=== PATIENT | male | born 1935 | race Caucasian/White ===

== ENCOUNTER → 2017-01-18 | Outpatient (CLI) | payer MEDICARE ==
--- NOTE | 2017-01-18 10:53 | XR ---
EXAMINATION TYPE: XR lumbar spine 2 or 3V DATE OF EXAM: 01/18/2017 CLINICAL HISTORY: pain TECHNIQUE: Three views of the lumbar spine are submitted. COMPARISON: None. FINDINGS: There is curvature seen convex to the right. The degenerative disc space narrowing and spondylosis is noted throughout. There is evidence of facet joint arthropathy. I do not see evidence for fracture o r bony lesion. IMPRESSION: No acute fracture or dislocation is seen in the lumbar spine. ICD 10 NO FRACTURE, INITIAL EVALUATION
== END | disposition home or self-care (01) ==
LOC: RADXRMAIN 10:18
PROVIDERS: ATTEND Internal Medicine Geriatric Medicine
DX: M48.06 Spinal stenosis, lumbar region (principal)
CPT/HCPCS: 72100

== ENCOUNTER 2018-02-08 13:52 | Emergency (ER) | payer MEDICARE ==
[2018-02-08 14:17] VITALS: BP 133/78; PULSE 73; RESP 18; TEMP 98
[2018-02-08 15:43] LABS: Basophils % (A) 1 %; Eosinophils # (A) 0.1 k/uL (0-0.7); Eosinophils % (A) 1 %; HGB 12.8 gm/dL (13.0-17.5); Lymphocytes # (A) 0.9 k/uL (1.0-4.8); Lymphocytes % (A) 14 %; MCH 30.7 pg (25.0-35.0); MCHC 32.8 g/dL (31.0-37.0); MCV 93.6 fL (80.0-100.0); Mean Platelet Volume 10.5; Monocytes # (A) 0.5 k/uL (0-1.0); Monocytes % (A) 7 %; Neutrophils # (A) 4.8 k/uL (1.3-7.7); Neutrophils % (A) 75 %; Platelet Count 129 k/uL (150-450); RBC 4.17 m/uL (4.30-5.90); RDW 13.1 % (11.5-15.5); WBC 6.4 k/uL (3.8-10.6)
[2018-02-08 16:00] LABS: Albumin 4.2 g/dL (3.5-5.0); Calcium 9.6 mg/dL (8.4-10.2); Potassium 4.8 mmol/L (3.5-5.1); Total Bilirubin 0.5 mg/dL (0.2-1.3); Total Protein 6.9 g/dL (6.3-8.2)
[2018-02-08 16:02] LABS: Creatine Kinase 93 U/L (55-170)
--- NOTE | 2018-02-08 16:11 | ED ---
General Adult HPI - General Chief complaint: GI Bleed Stated complaint: Poss GI Bleed Source: patient Mode of arrival: ambulatory Limitations: no limitations - History of Present Illness Initial comments: Dictation was produced using Step-In dictation software. please excuse any grammatical, word or spelling errors. Chief Complaint: 82-year-old male past medical history of hyperlipidemia, prostate disease, thyroid disorder presents with GI bleed. History of Present Illness: Patient states she's never had symptoms like this in the past. Today he had a bowel movement and passed a large dark bloody stool. He then had what appeared to be dark blood in the toilet. There was also blood in the toilet paper. Patient denies any constitutional symptoms. Denies any history of hemorrhoids. Denies any history of GI bleed. Patient on any anticoagulation. He does take a daily aspirin. Denies any abdominal pain or rectal pain. The ROS documented in this emergency department record has been reviewed and confirmed by me. Those systems with pertinent positive or negative responses have been documented in the HPI. All other systems are other negative and/or noncontributory. - Related Data Home Medications Medication Instructions Recorded Confirmed Aspirin EC [Ecotrin Low Dose] 81 mg PO HS 02/08/18 02/08/18 Ergocalciferol (Vitamin D2) 50,000 unit PO Q14D 02/08/18 02/08/18 [Vitamin D2] Simvastatin [Zocor] 20 mg PO HS 02/08/18 02/08/18 Tamsulosin [Flomax] 0.4 mg PO DAILY 02/08/18 02/08/18 Temazepam 30 mg PO HS 02/08/18 02/08/18 amLODIPine [Norvasc] 5 mg PO DAILY 02/08/18 02/08/18 Previous Rx's Medication Instructions Recorded Famotidine [Pepcid] 40 mg PO BID #20 tab 02/08/18 Allergies Allergy/AdvReac Type Severity Reaction Status Date / Time cyclobenzaprine AdvReac Unknown Verified 02/08/18 15:18 [From Flexeril] Review of Systems ROS Statement: Those systems with pertinent positive or pertinent negative responses have been documented in the HPI. ROS Other: All systems not noted in ROS Statement are negative. Past Medical History Past Medical History: Hyperlipidemia, Prostate Disorder, Thyroid Disorder History of Any Multi-Drug Resistant Organisms: None Reported Past Surgical History: Orthopedic Surgery, Tonsillectomy Additional Past Surgical History / Comment(s): B knee replacements Past Psychological History: No Psychological Hx Reported Smoking Status: Never smoker Past Alcohol Use History: None Reported Past Drug Use History: None Reported General Exam - General Exam Comments Initial Comments: PHYSICAL EXAM: General Impression: Alert and oriented x3, not in acute distress HEENT: Normocephalic atraumatic, extra-ocular movements intact, pupils equal and reactive to light bilaterally, mucous membranes moist. Cardiovascular: Heart regular rate and rhythm, S1&S2 audible, no murmurs, rubs or gallops Chest: Lungs clear to auscultation bilaterally, no rhonchi, no wheeze, no rales Abdomen: Bowel sounds present, abdomen soft, non-tender, non-distended, no organomegaly Musculoskeletal: Pulses present and equal in all extremities, no peripheral edema Motor: Power 5/5 bilaterally, no focal deficits noted Neurological: CN II-XII grossly intact, no focal motor or sensory deficits noted Skin: Intact with no visualized rashes Psych: Normal affect and mood Rectal exam: No findings to suggest fissures. There is a palpable mass in the 6 o'clock position Limitations: no limitations Course Vital Signs 02/08/18 14:12 Temperature 98 F Pulse Rate 73 Respiratory 18 Rate Blood Pressure 133/78 O2 Sat by Pulse 97 Oximetry Medical Decision Making - Medical Decision Making ED course: Old male presents with GI bleed. Clinical presentation suggests that patient's GI bleed is likely secondary to internal hemorrhoids. As upon arrival are within acceptable limits. Laboratory evaluation obtained. Hemoglobin is 12.8. No old labs for comparison. Platelet count is 129. Coag panel is negative. Creatinine 1.3, beyond 40. Glucose 121. Rest of labs unremarkable. X-ray of the abdomen was obtained showing no acute processes. Discussed with patient that no need for admission however he does need to have this addressed. Patient has good follow- up with his primary care physician. Patient is reliable individual with his . The have good follow-up. Patient given outpatient referral to GI doctor. Told to return to the emergency Department with any persistent bleeding worsening pain or any other symptoms. He is told to stop taking his aspirin in the meantime. Patient is understandable and agreeable. He will call his primary care physician's office tomorrow. Clinical presentation is most consistent with internal hemorrhoids. Patient given prescription for Protonix in the meantime. - Lab Data Result diagrams: 02/08/18 15:30 02/08/18 15:30 Lab Results 02/08/18 02/08/18 02/08/18 Range/Units 15:30 15:30 15:30 WBC 6.4 (3.8-10.6) k/uL RBC 4.17 L (4.30-5.90) m/uL Hgb 12.8 L (13.0-17.5) gm/dL Hct 39.0 (39.0-53.0) % MCV 93.6 (80.0-100.0) fL MCH 30.7 (25.0-35.0) pg MCHC 32.8 (31.0-37.0) g/dL RDW 13.1 (11.5-15.5) % Plt Count 129 L (150-450) k/uL Neutrophils % 75 % Lymphocytes % 14 % Monocytes % 7 % Eosinophils % 1 % Basophils % 1 % Neutrophils # 4.8 (1.3-7.7) k/uL Lymphocytes # 0.9 L (1.0-4.8) k/uL Monocytes # 0.5 (0-1.0) k/uL Eosinophils # 0.1 (0-0.7) k/uL Basophils # 0.0 (0-0.2) k/uL PT (9.0-12.0) sec INR (<1.2) APTT (22.0-30.0) sec Sodium 142 (137-145) mmol/L Potassium 4.8 (3.5-5.1) mmol/L Chloride 111 H (98-107) mmol/L Carbon Dioxide 23 (22-30) mmol/L Anion Gap 8 mmol/L BUN 40 H (9-20) mg/dL Creatinine 1.30 H (0.66-1.25) mg/dL Est GFR (CKD-EPI)AfAm 59 (>60 ml/min/1.73 sqM) Est GFR (CKD-EPI)NonAf 51 (>60 ml/min/1.73 sqM) Glucose 121 H (74-99) mg/dL Calcium 9.6 (8.4-10.2) mg/dL Total Bilirubin 0.5 (0.2-1.3) mg/dL AST 53 (17-59) U/L ALT 57 (21-72) U/L Alkaline Phosphatase 76 (38-126) U/L Total Creatine Kinase 93 (55-170) U/L CK-MB (CK-2) 1.4 (0.0-2.4) ng/mL CK-MB (CK-2) Rel Index 1.5 Troponin I <0.012 (0.000-0.034) ng/mL Total Protein 6.9 (6.3-8.2) g/dL Albumin 4.2 (3.5-5.0) g/dL 02/08/18 02/08/18 Range/Units 15:30 15:30 WBC (3.8-10.6) k/uL RBC (4.30-5.90) m/uL Hgb (13.0-17.5) gm/dL Hct (39.0-53.0) % MCV (80.0-100.0) fL MCH (25.0-35.0) pg MCHC (31.0-37.0) g/dL RDW (11.5-15.5) % Plt Count (150-450) k/uL Neutrophils % % Lymphocytes % % Monocytes % % Eosinophils % % Basophils % % Neutrophils # (1.3-7.7) k/uL Lymphocytes # (1.0-4.8) k/uL Monocytes # (0-1.0) k/uL Eosinophils # (0-0.7) k/uL Basophils # (0-0.2) k/uL PT 10.8 (9.0-12.0) sec INR 1.1 (<1.2) APTT 23.8 (22.0-30.0) sec Sodium (137-145) mmol/L Potassium (3.5-5.1) mmol/L Chloride (98-107) mmol/L Carbon Dioxide (22-30) mmol/L Anion Gap mmol/L BUN (9-20) mg/dL Creatinine (0.66-1.25) mg/dL Est GFR (CKD-EPI)AfAm (>60 ml/min/1.73 sqM) Est GFR (CKD-EPI)NonAf (>60 ml/min/1.73 sqM) Glucose (74-99) mg/dL Calcium (8.4-10.2) mg/dL Total Bilirubin (0.2-1.3) mg/dL AST (17-59) U/L ALT (21-72) U/L Alkaline Phosphatase (38-126) U/L Total Creatine Kinase (55-170) U/L CK-MB (CK-2) (0.0-2.4) ng/mL CK-MB (CK-2) Rel Index Troponin I (0.000-0.034) ng/mL Total Protein (6.3-8.2) g/dL Albumin (3.5-5.0) g/dL Disposition Clinical Impression: GI bleed Disposition: HOME SELF-CARE Condition: Fair Instructions: Gastrointestinal Bleeding (ED) Additional Instructions: hold aspirin until further notice Prescriptions: Famotidine [Pepcid] 40 mg PO BID #20 tab Is patient prescribed a controlled substance at d/c from ED?: No Referrals: Juan Fall MD [Primary Care Provider] - 1-2 days Adalberto Saeed MD [STAFF PHYSICIAN] - 1-2 days Time of Disposition: 16:56
[2018-02-08 16:14] LABS: Creatine Kinase MB 1.4 ng/mL (0.0-2.4); Troponin I <0.012 ng/mL (0.000-0.034)
[2018-02-08 16:27] LABS: INR 1.1 (<1.2); Prothrombin Time 10.8 sec (9.0-12.0)
--- NOTE | 2018-02-08 16:51 | XR ---
EXAMINATION TYPE: XR abdomen 1V DATE OF EXAM: 02/08/2018 COMPARISON: NONE HISTORY: Blood in the stool TECHNIQUE: 2 views upright FINDINGS: Bowel gas pattern is normal. There is no sign of intestinal obstruction or pneumoperitoneum . Fecal pattern is normal. There is no 1 cm calcification over the right iliac bone that could be ost eoma of the ileum. There are no pathologic calcifications of the kidneys. There is spurring in the nerissa mbar spine. Lung bases are clear. IMPRESSION: Nonacute abdomen.
== END 2018-02-08 17:41 | disposition home or self-care (01) ==
LOC: EC 13:52
DX: K92.2 Gastrointestinal hemorrhage, unspecified (principal); E78.5 Hyperlipidemia, unspecified; Z79.82 Long term (current) use of aspirin; Z79.899 Other long term (current) drug therapy; Z88.8 Allergy status to other drugs, medicaments and biological substances
CPT/HCPCS: 36415; 74018; 80053; 82550; 82553; 84484; 85025; 85610; 85730; 99285

== ENCOUNTER → 2018-05-09 | Outpatient (CLI) | payer MEDICARE ==
[~2018-05-09] MED LIST: REGADENOSON 0.4 MG/5 ML SYRINGE IV ONE
--- NOTE | 2018-05-09 12:29 | ECHOF ---
Referral Reason:i35.0 - Nonrheumatic Aortic Valve Stenosis MEASUREMENTS -------- HEIGHT: 165.1 cm WEIGHT: 97.5 kg BP: RVIDd: 2.7 cm (< 3.3) IVSd: 1.2 cm (0.6 - 1.1) LVIDd: 4.7 cm (3.9 - 5.3) LVPWd: 1.3 cm (0.6 - 1.1) IVSs: 1.6 cm LVIDs: 4.0 cm LVPWs: 1.6 cm LA Diam: 5.5 cm (2.7 - 3.8) LAESV Index (A-L): 38.33 ml/m Ao Diam: 3.0 cm (2.0 - 3.7) AV Cusp: 1.6 cm (1.5 - 2.6) EPSS: 1.8 cm MV E Jeff: 0.41 m/s MV DecT: 252 ms MV A Jeff: 0.96 m/s MV E/A Ratio: 0.43 AV maxP.08 mmHg AV meanP.46 mmHg AR PHT: 618 ms RAP: 5.00 mmHg RVSP: 41.22 mmHg MV EF SLOPE: 68.06 mm/s (70 - 150) MV EXCURSION: 1.79 cm (> 18.000) FINDINGS -------- Undetermined rhythm. BBB This was a technically adequate study. The left ventricular size is normal. There is mild concentric left ventricular hypertrophy. Overa ll left ventricular systolic function is mild-moderately impaired with, an EF between 40 - 45 %. The right ventricle is normal in size. LA is moderately dilated 34-39 ml/m2 The right atrial size is normal. There is mild aortic valve sclerosis. There is mild aortic regurgitation. There is mild aortic st enosis present. Peak/mean gradient across the Aortic Valve is 21.08mmHg / 9.46mmHg. The mitral valve leaflets are mildly thickened. Mild mitral regurgitation is present. Moderate tricuspid regurgitation present. There is mild to moderate pulmonary hypertension. The r ight ventricular systolic pressure, as measured by Doppler, is 41.22mmHg. Trace/mild (physiologic) pulmonic regurgitation. The aortic root size is normal. There is no pericardial effusion. CONCLUSIONS -------- 1. Undetermined rhythm. 2. BBB 3. The left ventricular size is normal. 4. There is mild concentric left ventricular hypertrophy. 5. Overall left ventricular systolic function is mild-moderately impaired with, an EF between 40 - 45 %. 6. LA is moderately dilated 34-39 ml/m2 7. There is mild aortic valve sclerosis. 8. There is mild aortic regurgitation. 9. There is mild aortic stenosis present. 10. Peak/mean gradient across the Aortic Valve is 21.08mmHg / 9.46mmHg. 11. The mitral valve leaflets are mildly thickened. 12. Mild mitral regurgitation is present. 13. Moderate tricuspid regurgitation present. 14. There is mild to moderate pulmonary hypertension. 15. Trace/mild (physiologic) pulmonic regurgitation. 16. The aortic root size is normal. 17. There is no pericardial effusion. MOLD MECHANIC: Rachana Petersen RDCS
--- NOTE | 2018-05-09 12:57 | EST ---
EXERCISE STRESS AGE: 82 SEX: M HT: 5'6" WT: 215 PROTOCOL: Lexiscan Cardiolite Stress Test HEART RATE REST: 70 BLOOD PRESSURE REST: 162/91 MAXIMUM HEART RATE ACHIEVED: 80 MAXIMUM BLOOD PRESSURE: 162/91. CLINICAL INFORMATION: Baseline rhythm is sinus mechanism, rate of 70, left bundle branch block. Baseline blood pressure 162/91 mmHg. Patient received injection of Lexiscan. Electrocardiographic monitoring revealed no evidence of diagnostic ischemic ST deviation. Cardiolite was injected per protocol. CONCLUSION: 1. Nondiagnostic electrocardiograph stress testing. 2. Nuclear images will be reported separately. MMODL / IJN: [id number] /
--- NOTE | 2018-05-09 15:18 | NM ---
EXAMINATION TYPE: NM stress lexiscan cardiolite DATE OF EXAM: 05/09/2018 COMPARISON: NONE HISTORY: I 44.7, hypertension TECHNIQUE: After the intravenous administration of 10.2 mCi Tc 99m Sestamibi - Cardiolite resting SP ECT images acquired 45 minutes post injection. The patient received 0.4mg Lexiscan, 25.3 mCi Tc 99m Sestamibi - Stress images obtained [address] injection FINDINGS: Review of stress and rest SPECT images demonstrates some mild decreased uptake along the inferior wal l, anteroseptal wall on both stress and rest images. Some decreased uptake is noted on stress images as compared to rest images at the cardiac apex. Gated analysis shows normal wall motion with an estim ated left ventricular ejection fraction of 60 %. 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 Report relayed telephonically to the office of Dr. Fall. A Document Only message has been documented for Juan Fall MD in the [facility] system on 05/09/2018 3:15 PM, Message ID [id number].
== END ==
LOC: RADNMMAIN 07:42
PROVIDERS: ATTEND Internal Medicine Geriatric Medicine
DX: I44.7 Left bundle-branch block, unspecified (principal); I35.0 Nonrheumatic aortic (valve) stenosis
CPT/HCPCS: 93017; 93306; 78452; A9500; J2785

== ENCOUNTER → 2018-06-13 | Outpatient (CLI) | payer MEDICARE ==
[2018-06-13 12:27] LABS: HCT 40.4 % (39.0-53.0); HGB 13.6 gm/dL (13.0-17.5); MCH 31.1 pg (25.0-35.0); MCHC 33.7 g/dL (31.0-37.0); MCV 92.3 fL (80.0-100.0); Mean Platelet Volume 10.8; Platelet Count 135 k/uL (150-450); RBC 4.38 m/uL (4.30-5.90); RDW 13.3 % (11.5-15.5); WBC 6.7 k/uL (3.8-10.6)
[2018-06-13 20:56] LABS: Anion Gap 9.6 mmol/L (4.00-12.00); Carbon Dioxide 24.4 mmol/L (21.6-31.8); Potassium 4.5 mmol/L (3.5-5.5)
== END | disposition home or self-care (01) ==
LOC: LABWHC1 11:16
PROVIDERS: ATTEND Internal Medicine Interventional Cardiology
DX: Z01.812 Encounter for preprocedural laboratory examination (principal); I11.0 Hypertensive heart disease with heart failure; I50.22 Chronic systolic (congestive) heart failure
CPT/HCPCS: 36415; 80051; 82565; 84520; 85027

== ENCOUNTER 2018-06-19 09:52 | Day surgery (SDC) | payer MEDICARE ==
[2018-06-16 09:15] VITALS: BMI 33.1
[~2018-06-19 09:52] MED LIST changes: +ALPRAZolam 0.25 MG TAB PO PRN; +ALPRAZolam 0.5 MG TAB PO PRN; +ASPIRIN 325 MG TAB PO STA; +ATORVASTATIN 80 MG TAB PO STA; +NITROGLYCERIN SL TABS 0.4 MG TAB SUBLINGUAL PRN; -REGADENOSON 0.4 MG/5 ML SYRINGE IV ONE
[2018-06-19] MEDS: SODIUM CHLORIDE 0.9% 1,000 ML in EMPTY BAG 1 BAG IV ONE ×2 (10:25→10:28)
[2018-06-19 10:27] VITALS: PULSE 77; RESP 18; TEMP 97.9
[2018-06-19] MEDS: MIDAZOLAM 2 MG/2 ML VIAL IVP ONE ×2 (13:06→13:09)
[2018-06-19] MEDS ORDERED: LIDOCAINE 1% INJ 10MG/ML (20 ML MDV) SQ ONE (13:11)
[2018-06-19] MEDS: VERAPAMIL SYRINGE (5 MG/10 ML) INTRAARTER ONE ×2 (13:11→13:22)
[2018-06-19] MEDS ORDERED: HEPARIN SODIUM 1,000 UN/ML (10ML VL) IV ONE (13:12)
[2018-06-19] MEDS ORDERED: IOPAMIDOL-370 125ML BTL INJ ONE (13:20)
[2018-06-19] MEDS ORDERED: RX INFO: IV CONTRAST WAS GIVEN 1 EACH MISC MISCELLANE PRN (13:27)
[2018-06-19] MEDS ORDERED: SODIUM CHLORIDE 0.9% 1,000 ML IV SCH (13:30)
--- NOTE | 2018-06-19 13:56 | LTR ---
DATE OF SERVICE: 06/19/2018 RE: Jed Redman Dear Dr. Fall; Mr. Jed Redman underwent a heart catheterization today and that revealed normal coronaries. I want again to thank you for allowing us to participate in his care and please do not hesitate to call if you have any question or concern. Sincerely, MD ALYSON Vasquez / THOMASN: [id number] /
--- NOTE | 2018-06-19 13:56 | CC ---
CARDIAC CATHETERIZATION REPORT DATE OF SERVICE: 06/19/2018 PERFORMING PHYSICIAN: Adarsh Rouse MD, Visitor Use Assistant. PROCEDURE PERFORMED: 1. Selective right and left coronary angiogram. 2. Left heart catheterization. INDICATION: This is a pleasant 82-year-old gentleman with hypertension and dyslipidemia who was experiencing chest discomfort and underwent a myocardial perfusion imaging stress test and that revealed an apical ischemia. The heart catheterization was advised. APPROACH: Right radial artery. COMPLICATION: None. LEVEL OF SEDATION: Moderate with a sedation length of 40 minutes. PROCEDURE DESCRIPTION: After obtaining an informed consent, the patient was brought to the cardiac photo lab manager. The right radial artery was cannulated using micropuncture technique, then I placed a 5- Swiss sheath in the right radial artery and subsequently I gave the patient 2 mg of verapamil IA and 10,000 units of heparin IV. Selective right and left coronary angiogram performed using JR4 and JL3.5 catheters. After that, I did left heart catheterization using 5-Swiss pigtail catheter. The procedure was completed without any complication. CORONARY ANGIOGRAM: 1. The right coronary artery is a medium caliber vessel. It is a nondominant vessel and appears to be angiographically normal. 2. The left main is angiographically normal but the short left main bifurcates into the circumflex and left anterior descending artery. 3. The left circumflex is a large caliber vessel. It is a dominant vessel. The left circumflex system is angiographically normal. It gives rise into first and second OM branches, both are angiographically normal and distally bifurcates into PDA and PLV branches, both are angiographically normal. 4. The LAD: The proximal LAD appeared to be normal. The mid LAD is normal and gives rise into first and second diagonal branches, both appeared to be angiographically normal. It distally appeared to be angiographically normal. HEMODYNAMICS: The left ventricular end-diastolic pressure was 18 mmHg and no gradient was identified across the aortic valve. CONCLUSION: 1. Normal coronary angiogram. 2. Dominant right coronary artery system. 3. Short left main coronary artery. POSTPROCEDURE MANAGEMENT: 1. Medical treatment. 2. Follow up with the patient. MMODL / IJN: [id number] /
[2018-06-19] MEDS ORDERED: amLODIPine 5 MG TAB PO STA (18:06)
[2018-06-19 19:32] VITALS: BP 168/78
== END 2018-06-19 19:20 | disposition home or self-care (01) ==
LOC: CATHCVL 09:52
PROVIDERS: ATTEND Internal Medicine Interventional Cardiology
DX: I42.8 Other cardiomyopathies (principal); R94.39 Abnormal result of other cardiovascular function study; I11.0 Hypertensive heart disease with heart failure; I50.20 Unspecified systolic (congestive) heart failure; E78.5 Hyperlipidemia, unspecified; E78.00 Pure hypercholesterolemia, unspecified; Z79.82 Long term (current) use of aspirin; Z79.899 Other long term (current) drug therapy
CPT/HCPCS: 93458; C1769 ×2; C1894; J2250; J2001; J1644; Q9967

== ENCOUNTER → 2019-05-09 | Outpatient (CLI) | payer MEDICARE ==
--- NOTE | 2019-05-09 15:22 | US ---
EXAMINATION TYPE: US kidneys/renal and bladder DATE OF EXAM: 05/09/2019 COMPARISON: NONE CLINICAL HISTORY: N18.9 Chronic kidney disease. No pain. Abnormal labs. EXAM MEASUREMENTS: Right Kidney: 9.0 x 4.4 x 4.5 cm Left Kidney: 9.8 x 4.6 x 5.2 cm Right Kidney: No hydronephrosis or masses seen Left Kidney: No hydronephrosis or masses seen Bladder: distended, anechoic- inferior portion not well visualized Bilateral Jets seen There is no evidence for hydronephrosis at this point in time. No nephrolithiasis is seen. No ambreen s are identified. The urinary bladder is anechoic. Bilateral ureteral jets are seen. IMPRESSION: Unremarkable renal ultrasound. No hydronephrosis or nephrolithiasis. No sonographic seque la of medical renal disease.
== END | disposition home or self-care (01) ==
LOC: RADUSWWP 14:44
PROVIDERS: ATTEND Internal Medicine Geriatric Medicine
DX: N18.9 Chronic kidney disease, unspecified (principal)
CPT/HCPCS: 76770

== ENCOUNTER → 2020-07-28 | Outpatient (CLI) | payer MEDICARE ==
--- NOTE | 2020-07-28 10:59 | US ---
EXAMINATION TYPE: US carotid duplex BILAT DATE OF EXAM: 07/28/2020 COMPARISON: NONE CLINICAL HISTORY: TIA G45.9. HTN. EXAM MEASUREMENTS: RIGHT: Peak Systolic Velocity (PSV) cm/sec ----- Right CCA: 54.5 ----- Right ICA: 78.6 ----- Right ECA: 54.5 ICA/CCA ratio: 1.4 RIGHT: End Diastole cm/sec ----- Right CCA: 12.8 ----- Right ICA: 17.5 ----- Right ECA: 5.7 LEFT: Peak Systolic Velocity (PSV) cm/sec ----- Left CCA: 58.6 ----- Left ICA: 48.8 ----- Left ECA: 59.6 ICA/CCA ratio: 0.8 LEFT: End Diastole cm/sec ----- Left CCA: 13.9 ----- Left ICA: 14.4 ----- Left ECA: 5.7 VERTEBRALS (direction of flow): Right Vertebral: Antegrade Left Vertebral: Antegrade Rhythm: Normal Plaque seen in bilateral bulbs. No elevated velocities or significant stenosis. Wall thickening vis ualized. IMPRESSION: No significant flow-limiting stenosis. Criteria for Assigning % of Stenosis / Diameter reduction (Estimation based on the indirect measurements of the internal carotid artery velocities (ICA PSV). 1. Normal (no stenosis)=ICA PSV < 125 cm/s: ratio < 2.0: ICA EDV<40 cm/s. 2. Less than 50% stenosis=ICA PSV < 125 cm/s: ratio < 2.0: ICA EDV<40 cm/s. 3. 50 to 69% stenosis=ICA PSV of 125 to 230 cm/s: ration 2.0 ? 4.0: ICA EDV 40-100 cm/s. 4. Greater than 70% stenosis to near occlusion= ICA PSV > 230 cm/s: ratio > 4.0: ICA EDV > 100 cm/s. 5. Near occlusion= ICA PSV velocities may be low or undetectable: variable ratio and ICA EDV. 6. Total occlusion=unable to detect flow.
--- NOTE | 2020-07-28 11:00 | ECHOF ---
Referral Reason:G45.9 TIA MEASUREMENTS -------- HEIGHT: 172.7 cm WEIGHT: 95.7 kg BP: RVIDd: 3.5 cm (< 3.3) IVSd: 1.4 cm (0.6 - 1.1) LVIDd: 4.6 cm (3.9 - 5.3) LVPWd: 1.4 cm (0.6 - 1.1) IVSs: 1.9 cm LVIDs: 3.5 cm LVPWs: 2.0 cm LA Diam: 4.2 cm (2.7 - 3.8) LAESV Index (A-L): 44.49 ml/m Ao Diam: 3.5 cm (2.0 - 3.7) AV Cusp: 1.6 cm (1.5 - 2.6) MV EXCURSION: 16.432 mm (> 18.000) MV EF SLOPE: 37 mm/s (70 - 150) EPSS: 1.7 cm MV E Jeff: 0.78 m/s MV DecT: 294 ms MV A Jeff: 1.35 m/s MV E/A Ratio: 0.58 AV maxP.25 mmHg AV meanP.28 mmHg AR PHT: 652 ms RAP: 5.00 mmHg RVSP: 45.34 mmHg FINDINGS -------- This was a technically adequate study. The left ventricular size is normal. There is moderate concentric left ventricular hypertrophy. O verall left ventricular systolic function is severely impaired with, an EF between 20 - 25 %. The right ventricle is mildly enlarged. LA is severely dilated >40 ml/m2 The right atrium is normal in size. Interatrial and interventricular septum intact. There is mild aortic valve sclerosis. There is mild aortic regurgitation. There is mild aortic st enosis present. Peak/mean gradient across the Aortic Valve is 24.25mmHg / 11.28mmHg. The mitral valve leaflets are mildly thickened. Mild mitral annular calcification present. Mild-t o-moderate mitral regurgitation is present. Moderate tricuspid regurgitation present. There is mild to moderate pulmonary hypertension. The r ight ventricular systolic pressure, as measured by Doppler, is 45.34mmHg. Trace/mild (physiologic) pulmonic regurgitation. 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 Normal inferior vena cava with normal inspiratory collapse consistent with estimated right atrial pre ssure of 5 mmHg. There is no pericardial effusion. CONCLUSIONS -------- 1. The left ventricular size is normal. 2. There is moderate concentric left ventricular hypertrophy. 3. Overall left ventricular systolic function is severely impaired with, an EF between 20 - 25 %. 4. The right ventricle is mildly enlarged. 5. LA is severely dilated >40 ml/m2 6. There is mild aortic valve sclerosis. 7. There is mild aortic regurgitation. 8. There is mild aortic stenosis present. 9. Peak/mean gradient across the Aortic Valve is 24.25mmHg / 11.28mmHg. 10. The mitral valve leaflets are mildly thickened. 11. Mild mitral annular calcification present. 12. [id number] mitral regurgitation is present. 13. Moderate tricuspid regurgitation present. 14. There is mild to moderate pulmonary hypertension. 15. The right ventricular systolic pressure, as measured by Doppler, is 45.34mmHg. 16. Trace/mild (physiologic) pulmonic regurgitation. 17. 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 18. There is no pericardial effusion. NUTRITIONISTS: TANYA Mon
--- NOTE | 2020-07-28 12:10 | MR ---
EXAMINATION TYPE: MR brain wo/w con DATE OF EXAM: 07/28/2020 COMPARISON: None HISTORY: TIA TECHNIQUE: Multiplanar, multisequence images of the brain and brainstem is performed without and with IV contras t, utilizing 9.5 mL intravenous Gadavist . FINDINGS: Diffusion weighted images demonstrate no evidence of a recent infarct or other diffusion ab normality. There is no extra-axial fluid collection. Periventricular confluent and scattered, subco rtical and pericallosal hyperintensities are present, at least 40-50 lesions present The ventricular system and cisternal spaces are normal in size and appearance. The brain volume is age appropriate, there is cortical atrophy. Midline structures demonstrate normal morphology, there is a partially empty sella. The craniocervic al junction appears within normal limits. Post contrast images demonstrate no abnormal enhancement. The dural venous sinuses appear patent. The visualized sinuses are remarkable for mucoperiosteal thic kening in the maxillary sinuses, ethmoid air cells, and the globes are intact. IMPRESSION: Age-related changes of atrophy and chronic small vessel ischemia is favored
== END | disposition home or self-care (01) ==
LOC: RADMRIMAIN 07:58
PROVIDERS: ATTEND Internal Medicine Geriatric Medicine
DX: G45.9 Transient cerebral ischemic attack, unspecified (principal)
CPT/HCPCS: 93225; 93226; 93306; 93880; 70553; A9585

== ENCOUNTER 2021-09-07 16:34 | Observation (INO) | payer MEDICARE ==
[2021-09-07] MEDS ORDERED: SODIUM CHLORIDE 0.9% 1,000 ML IV STA ×2 (17:56→19:44)
[2021-09-07 18:35] LABS: Basophils # (A) 0.1 k/uL (0-0.2); Basophils % (A) 1 %; Eosinophils # (A) 0.2 k/uL (0-0.7); Eosinophils % (A) 3 %; HCT 41.8 % (39.0-53.0); HGB 13.7 gm/dL (13.0-17.5); Lymphocytes # (A) 0.9 k/uL (1.0-4.8); Lymphocytes % (A) 14 %; MCH 30.5 pg (25.0-35.0); MCHC 32.8 g/dL (31.0-37.0); MCV 92.9 fL (80.0-100.0); Mean Platelet Volume 10.2; Monocytes # (A) 0.6 k/uL (0-1.0); Monocytes % (A) 9 %; Neutrophils # (A) 4.8 k/uL (1.3-7.7); Neutrophils % (A) 71 %; Platelet Count 160 k/uL (150-450); WBC 6.7 k/uL (3.8-10.6)
[2021-09-07 18:44] LABS: Potassium 5.2 mmol/L (3.5-5.1)
[2021-09-07 18:45] LABS: Albumin 4.1 g/dL (3.5-5.0); Calcium 9.3 mg/dL (8.4-10.2); Total Bilirubin 0.7 mg/dL (0.2-1.3); Total Protein 7.2 g/dL (6.3-8.2)
--- NOTE | 2021-09-07 19:44 | XR ---
EXAMINATION TYPE: XR chest 1V portable DATE OF EXAM: 09/07/2021 7:24 PM COMPARISON:None TECHNIQUE: XR chest 1V portable Frontal view of the chest. CLINICAL INDICATION:Male, 85 years old with history of dizzy; FINDINGS: Lungs/Pleura: There is no evidence of pleural effusion, focal consolidation, or pneumothorax. Pulmonary vascularity: Unremarkable. Heart/mediastinum: Cardiomediastinal silhouette is prominent in size. Atherosclerotic calcifications are seen in the aorta. Musculoskeletal: No acute osseous pathology. IMPRESSION: No acute cardiopulmonary disease/process.
[2021-09-07] MEDS ORDERED: ACETAMINOPHEN TAB 325 MG TAB PO PRN (19:53)
[2021-09-07] MEDS ORDERED: NALOXONE 0.4 MG/ML 1 ML VIAL IV PRN (19:53)
[2021-09-07] MEDS ORDERED: DOCUSATE 100 MG CAP PO PRN (19:57)
[2021-09-07 20:05] LABS: Appearance,Urine Clear (Clear); Bilirubin,Urine Negative (Negative); Blood,Urine Negative (Negative); Calcium Oxalate Crystals,Urine Occasional /hpf; Color,Urine Yellow; Glucose,Urine (UA) Negative (Negative); Hyaline Casts,Urine 3 /lpf (0-2); Ketones,Urine Negative (Negative); Leukocyte Esterase,Urine Small (Negative); Mucus,Urine Rare /hpf; Nitrite,Urine Negative (Negative); PH, Urine 5.5 (5.0-8.0); Protein,Urine Negative (Negative); RBC,Urine 1 /hpf (0-5); Specific Gravity,Urine 1.019 (1.001-1.035); Urobilinogen,Urine <2.0 mg/dL (<2.0); WBC,Urine 5 /hpf (0-5)
[2021-09-07] MEDS: ASPIRIN 81 MG PO SCH (20:34)
[2021-09-07] MEDS: TAMSULOSIN 0.4 MG CAP.ER.24H PO SCH (20:35)
[2021-09-07] MEDS: ATORVASTATIN 10 MG TAB PO SCH (20:35)
--- NOTE | 2021-09-07 20:42 | ED ---
General Adult HPI - General Chief complaint: Dizziness Stated complaint: Low BP Time Seen by Provider: 09/07/21 17:04 Source: patient, family, RN notes reviewed, old records reviewed Mode of arrival: wheelchair Limitations: physical limitation - History of Present Illness Initial comments: Patient is an 85-year-old male with past medical history remarkable for hypertension, prostate disease, hyperlipidemia, GERD who presents to the department complaining of a low blood pressure and dizziness. This is been ongoing for days to weeks. They have been changing his blood pressure medications at home with help from his doctor. Has been having episodes of what sounds like orthostatic hypotension, she states that when he stands up or sits up from lying down, he becomes lightheaded. He states he almost is passed out, has not for the past. He does fall down onto his knees. Denies any injury to his head or other extremities. States he has been checking his blood pressure at home and is no systolics as low as in the 70s to 80s. He is now only on metoprolol for blood pressure. Denies any numbness, abdominal pain, nausea, vomiting, chest pain, shortness of breath. Is not on blood thinners. Denies hitting his head. His no other acute complaints at this time. Called his PCP office today, and he was instructed to come here for further evaluation. - Related Data Home Medications Medication Instructions Recorded Confirmed Aspirin EC [Ecotrin Low Dose] 81 mg PO HS 02/08/18 09/07/21 Ergocalciferol (Vitamin D2) 50,000 unit PO WE 02/08/18 09/07/21 [Vitamin D2] Simvastatin [Zocor] 20 mg PO 02/08/18 09/07/21 Tamsulosin [Flomax] 0.4 mg PO 02/08/18 09/07/21 Docusate [Colace] 100 mg PO DAILY PRN 09/07/21 09/07/21 Metoprolol Succinate [Toprol XL] 25 mg PO HS 09/07/21 09/07/21 Midodrine HCl [ProAmantine] 2.5 mg PO BID PRN 09/07/21 09/07/21 hydrALAZINE HCL [Apresoline] 25 mg PO DAILY PRN 09/07/21 09/07/21 Allergies Allergy/AdvReac Type Severity Reaction Status Date / Time cyclobenzaprine AdvReac Unknown Verified 09/07/21 18:16 [From Flexeril] Review of Systems ROS Statement: Those systems with pertinent positive or pertinent negative responses have been documented in the HPI. Review of Systems: CONST: Denies fever EYES: Denies blurry vision ENT: Denies nasal congestion C/V: Denies Chest pain RESP: Denies shortness of breath GI: Denies abdominal pain : Denies dysuria SKIN: Denies rash. MSK: Denies joint pain. NEURO: Denies headache ROS Other: All systems not noted in ROS Statement are negative. Past Medical History Past Medical History: GERD/Reflux, Hyperlipidemia, Hypertension, Prostate Disord er History of Any Multi-Drug Resistant Organisms: None Reported Past Surgical History: Joint Replacement, Tonsillectomy Additional Past Surgical History / Comment(s): [facility]raim knee replacements Past Psychological History: No Psychological Hx Reported Smoking Status: Never smoker Past Alcohol Use History: None Reported Past Drug Use History: None Reported - Past Family History Mother Family Medical History: No Reported History Father Family Medical History: Cancer Additional Family Medical History / Comment(s): lung cancer General Exam - General Exam Comments Initial Comments: General: Appears in no acute distress. HEAD: Normal with no signs of head trauma. EYES: PERRLA, EOMI, conjunctiva normal, no discharge. ENT: Hearing grossly intact, normal oropharynx. RESPIRATORY: Clear breath sounds bilaterally. No wheezes, rales, or rhonchi. C/V: Regular rate and rhythm. S1 and S2 auscultated, no edema, peripheral pulses 2+ and intact throughout ABD: Abd is soft, nontender, nondistended EXT: Normal range of motion, no obvious deformity SKIN: No rashes or lesions observed on exposed skin. NEURO: Alert and oriented x 4. Cranial nerves II-XII intact. No focal sensory or strength deficits. NIH is 0. GCS is 15. Limitations: physical limitation Course Vital Signs 09/07/21 09/07/21 16:48 18:17 Temperature 97.5 F L Pulse Rate 72 Pulse Rate [ 71 Talk Show Host ] Respiratory 16 Rate Blood Pressure 131/67 Blood Pressure 174/91 [Left Arm Sitting] Blood Pressure 132/78 [Left Arm Standing] Blood Pressure 186/94 [Left Arm Supine] O2 Sat by Pulse 98 Oximetry Medical Decision Making - Medical Decision Making Based on the patient's presentation and physical exam, does appear as he is having episodes of orthostatic hypotension at home. They have been adjusting his blood pressure medications. He does appear mildly dehydrated as well. Therefore we will obtain a cardiac workup in addition to basic labs, urinalysis. He was in agreement with this plan. Chest x-ray will also be obtained. Orthostatic vital signs will be obtained. EKG shows no signs of acute ischemia. Chest x-ray reveals no acute cardiopulmonary process. Laboratory studies are remarkable for an indeterminate troponin of 0.014 with a mild AK eye with an elevated BUN and creatinine of 30 and 1.43 respectively. Patient is mildly elevated potassium of 5.2. The remainder the labs are unremarkable. Patient's orthostatic vital signs showed significant drop in systolic blood pressure from 186 while supine to 132 while standing. I do believe he is likely experiencing. Patient is elderly, lives with his and I believe it is best for him to be admitted overnight for cardiac monitoring. He will receive IV fluids as well as. I discussed this with the patient as well as family and they were in agreement this plan. I spoke with the admitting physician, Dr. Shah who accepted the patient. Patient was therefore admitted in stable condition. Troponins will be troponin and patient will be continued on IV fluids. We will attempt to hold his evening blood pressure medications at this time. - Lab Data Result diagrams: 09/07/21 18:27 09/07/21 18:27 Lab Results 09/07/21 09/07/21 09/07/21 Range/Units 18:27 18:27 18:27 WBC 6.7 (3.8-10.6) k/uL RBC 4.50 (4.30-5.90) m/uL Hgb 13.7 (13.0-17.5) gm/dL Hct 41.8 (39.0-53.0) % MCV 92.9 (80.0-100.0) fL MCH 30.5 (25.0-35.0) pg MCHC 32.8 (31.0-37.0) g/dL RDW 13.0 (11.5-15.5) % Plt Count 160 (150-450) k/uL MPV 10.2 Neutrophils % 71 % Lymphocytes % 14 % Monocytes % 9 % Eosinophils % 3 % Basophils % 1 % Neutrophils # 4.8 (1.3-7.7) k/uL Lymphocytes # 0.9 L (1.0-4.8) k/uL Monocytes # 0.6 (0-1.0) k/uL Eosinophils # 0.2 (0-0.7) k/uL Basophils # 0.1 (0-0.2) k/uL Sodium 139 (137-145) mmol/L Potassium 5.2 H (3.5-5.1) mmol/L Chloride 107 (98-107) mmol/L Carbon Dioxide 26 (22-30) mmol/L Anion Gap 6 mmol/L BUN 30 H (9-20) mg/dL Creatinine 1.43 H (0.66-1.25) mg/dL Est GFR (CKD-EPI)AfAm 52 (>60 ml/min/1.73 sqM) Est GFR (CKD-EPI)NonAf 45 (>60 ml/min/1.73 sqM) Glucose 113 H (74-99) mg/dL Calcium 9.3 (8.4-10.2) mg/dL Total Bilirubin 0.7 (0.2-1.3) mg/dL AST 35 (17-59) U/L ALT 28 (4-49) U/L Alkaline Phosphatase 80 (38-126) U/L Troponin I (0.000-0.034) ng/mL Total Protein 7.2 (6.3-8.2) g/dL Albumin 4.1 (3.5-5.0) g/dL Urine Color Yellow Urine Appearance Clear (Clear) Urine pH 5.5 (5.0-8.0) Ur Specific [place] 1.019 (1.001-1.035) Urine Protein Negative (Negative) Urine Glucose (UA) Negative (Negative) Urine Ketones Negative (Negative) Urine Blood Negative (Negative) Urine Nitrite Negative (Negative) Urine Bilirubin Negative (Negative) Urine Urobilinogen <2.0 (<2.0) mg/dL Ur Leukocyte Esterase Small H (Negative) Urine RBC 1 (0-5) /hpf Urine WBC 5 (0-5) /hpf Calcium Oxalate Crystal Occasional H (None) /hpf Hyaline Casts 3 H (0-2) /lpf Urine Mucus Rare H (None) /hpf 09/07/21 Range/Units 18:27 WBC (3.8-10.6) k/uL RBC (4.30-5.90) m/uL Hgb (13.0-17.5) gm/dL Hct (39.0-53.0) % MCV (80.0-100.0) fL MCH (25.0-35.0) pg MCHC (31.0-37.0) g/dL RDW (11.5-15.5) % Plt Count (150-450) k/uL MPV Neutrophils % % Lymphocytes % % Monocytes % % Eosinophils % % Basophils % % Neutrophils # (1.3-7.7) k/uL Lymphocytes # (1.0-4.8) k/uL Monocytes # (0-1.0) k/uL Eosinophils # (0-0.7) k/uL Basophils # (0-0.2) k/uL Sodium (137-145) mmol/L Potassium (3.5-5.1) mmol/L Chloride (98-107) mmol/L Carbon Dioxide (22-30) mmol/L Anion Gap mmol/L BUN (9-20) mg/dL Creatinine (0.66-1.25) mg/dL Est GFR (CKD-EPI)AfAm (>60 ml/min/1.73 sqM) Est GFR (CKD-EPI)NonAf (>60 ml/min/1.73 sqM) Glucose (74-99) mg/dL Calcium (8.4-10.2) mg/dL Total Bilirubin (0.2-1.3) mg/dL AST (17-59) U/L ALT (4-49) U/L Alkaline Phosphatase (38-126) U/L Troponin I 0.014 (0.000-0.034) ng/mL Total Protein (6.3-8.2) g/dL Albumin (3.5-5.0) g/dL Urine Color Urine Appearance (Clear) Urine pH (5.0-8.0) Ur Specific [place] (1.001-1.035) Urine Protein (Negative) Urine Glucose (UA) (Negative) Urine Ketones (Negative) Urine Blood (Negative) Urine Nitrite (Negative) Urine Bilirubin (Negative) Urine Urobilinogen (<2.0) mg/dL Ur Leukocyte Esterase (Negative) Urine RBC (0-5) /hpf Urine WBC (0-5) /hpf Calcium Oxalate Crystal (None) /hpf Hyaline Casts (0-2) /lpf Urine Mucus (None) /hpf - EKG Data -: EKG Interpreted by Me EKG Comments: 12-lead Electrocardiogram Interpretation Note EKG was reviewed and interpreted by myself. 12-lead ECG performed at 1703 is interpreted by me as revealing normal sinus rhythm with a left bundle branch block which is chronic at a rate of 75 beats per minute. [place] is normal. [place] interval is 190 ms, QRS durations 160 ms, QTc is 09/13/1968 milliseconds.. There are chronic changes, but no acute changes seen in terms of acute onset ST segment or T-wave changes to suggest ischemia.. R wave progression across the precordium was satisfactory. By my interpretation this EKG is non-diagnostic for acute ischemia. Reveals chronic left bundle branch block. Disposition Clinical Impression: Orthostatic hypotension, JUSTIN (acute kidney injury) Disposition: ADMITTED IP TO THIS [facility] Condition: Stable Referrals: Juan Fall MD [Primary Care Provider] - 1-2 days
[2021-09-08] MEDS ORDERED: METOPROLOL SUCCINATE (ER) 25 MG TAB.ER.24H PO STA (02:08)
[2021-09-08] MEDS ORDERED: MELATONIN 5 MG TABLET PO ONE (02:11)
--- NOTE | 2021-09-08 07:52 | P.CRDCN ---
History of Present Illness Consult date: 09/08/21 History of present illness: History of Present Illness: The patient is an 85-year-old male with a history of hypertension and hyperlipidemia who presented with symptoms of dizziness and presyncope. The symptoms occur when he is standing and 3 days ago he had a presyncopal episode, fell to the ground but did not lose consciousness completely. He is usually active physically, denies any chest discomfort, palpitations or dyspnea. He underwent cardiac catheterization by Dr. Rouse in June 2018 and had no evidence of obstructive CAD. There is a reported echocardiogram from July 2020 with a severely impaired systolic function was mild to moderate mitral regurgitation and moderate tricuspid regurgitation. He cannot recall any history of CHF or CAD. His EKG showed left bundle branch block that was noted in 2018. He has a history of hypertension and hyperlipidemia, is a nondiabetic nonsmoker. He denies any peripheral edema. He has no associated palpitations with the symptoms. His energy is stable. When he checks his blood pressure home during the events his blood pressure is quite low. He was noted to be orthostatic upon admission. His medication at home include hydralazine on a when necessary basis, metoprolol succinate 25 mg daily, Flomax, simvastatin 20 g daily, aspirin, midodrine on a when necessary basis Review of Systems: Respiratory: No history of asthma, bronchitis or recent cough. GI: She had nausea and vomiting today. No history of peptic ulcer disease. No recent GI bleed. : No hematuria or dysuria. Nervous System: No stroke or seizure. Physical Examination: 85-year-old male, alert and oriented no apparent distress, blood pressure this morning 109/82 he was orthostatic earlier and had episodes of blood pressure in the 180, heart rate in the 60 Head: Normocephalic. Eyes: Sclerae nonicteric. Neck: Good carotid upstroke, no bruit, no jugular venous distention. Lungs: Clear to auscultation. Heart: Regular rate and rhythm, S1-S2, no S3, no rub. Systolic murmur heard at the base with a holosystolic murmur at the apex. Abdomen: Soft nontender, positive bowel sounds no organomegaly. Extremities: No edema, intact distal pulses. Labs: Troponin 0.014, 0.013, 0.018. BUN 30, creatinine 1.43, potassium 5.2, hemoglobin 13.7. EKG sinus mechanism was left bundle branch block. Chest x-ray with no acute infiltrate Impression: 1. Presyncopal episodes with significant orthostatic hypotension and baseline hypertension. There is no clear evidence to suggest arrhythmia as the etiology of his presentation. 2. Prior history of cardiomyopathy with no evidence of CHF on examination 3. Probable dehydration with abnormal renal functions not documented in 2018 4. History of hypertension at baseline 5. History of hyperlipidemia 6. Chronic left bundle branch block Plan: 1. Obtain an echocardiogram with Doppler 2. Follow renal functions 3. Add midodrine 5 mg 3 times a day 4. Monitor orthostatic symptoms 5. Continued telemetry 6. Depending on his progress further recommendations will be made. He may benefit from an outpatient event monitor to rule out high-grade AV block in view of his underlying left bundle branch block. Thank you for this consult we will follow with you. Past Medical History Past Medical History: GERD/Reflux, Hyperlipidemia, Hypertension, Prostate Disorder History of Any Multi-Drug Resistant Organisms: None Reported Past Surgical History: Joint Replacement, Tonsillectomy Additional Past Surgical History / Comment(s): [facility]raim knee replacements Past Psychological History: No Psychological Hx Reported Smoking Status: Never smoker Past Alcohol Use History: None Reported Past Drug Use History: None Reported - Past Family History Mother Family Medical History: No Reported History Father Family Medical History: Cancer Additional Family Medical History / Comment(s): lung cancer Medications and Allergies Home Medications Medication Instructions Recorded Confirmed Type Aspirin EC [Ecotrin Low Dose] 81 mg PO HS 02/08/18 09/07/21 History Ergocalciferol (Vitamin D2) 50,000 unit PO WE 02/08/18 09/07/21 History [Vitamin D2] Simvastatin [Zocor] 20 mg PO HS 02/08/18 09/07/21 History Tamsulosin [Flomax] 0.4 mg PO HS 02/08/18 09/07/21 History Docusate [Colace] 100 mg PO DAILY PRN 09/07/21 09/07/21 History Metoprolol Succinate [Toprol XL] 25 mg PO HS 09/07/21 09/07/21 History Midodrine HCl [ProAmantine] 2.5 mg PO BID PRN 09/07/21 09/07/21 History hydrALAZINE HCL [Apresoline] 25 mg PO DAILY PRN 09/07/21 09/07/21 History Allergies Allergy/AdvReac Type Severity Reaction Status Date / Time cyclobenzaprine AdvReac Unknown Verified 09/07/21 18:16 [From Flexeril] Physical Exam Vitals: Vital Signs Temp Pulse Pulse Resp BP BP BP 09/08/21 06:35 109/82 09/08/21 06:00 61 18 194/99 09/08/21 02:00 64 20 211/114 09/08/21 01:00 62 20 202/103 09/07/21 22:12 66 18 184/104 09/07/21 20:42 67 18 191/97 09/07/21 18:17 71 174/91 132/78 09/07/21 16:48 97.5 F L 72 16 131/67 BP Pulse Ox 09/08/21 06:35 99 09/08/21 06:00 99 09/08/21 02:00 99 09/08/21 01:00 99 09/07/21 22:12 99 09/07/21 20:42 98 09/07/21 18:17 186/94 09/07/21 16:48 98 Intake and Output 09/07/21 09/08/21 09/08/21 22:59 06:59 14:59 Other: Weight 86.183 kg Results 09/07/21 18:27 09/07/21 18:27 Cardiac Enzymes 09/07/21 09/07/21 09/07/21 Range/Units 18:27 18:27 21:22 AST 35 (17-59) U/L Troponin I 0.014 0.013 (0.000-0.034) ng/mL 09/08/21 Range/Units 00:16 AST (17-59) U/L Troponin I 0.018 (0.000-0.034) ng/mL CBC 09/07/21 Range/Units 18:27 WBC 6.7 (3.8-10.6) k/uL RBC 4.50 (4.30-5.90) m/uL Hgb 13.7 (13.0-17.5) gm/dL Hct 41.8 (39.0-53.0) % Plt Count 160 (150-450) k/uL Comprehensive Metabolic Panel 09/07/21 Range/Units 18:27 Sodium 139 (137-145) mmol/L Potassium 5.2 H (3.5-5.1) mmol/L Chloride 107 (98-107) mmol/L Carbon Dioxide 26 (22-30) mmol/L BUN 30 H (9-20) mg/dL Creatinine 1.43 H (0.66-1.25) mg/dL Glucose 113 H (74-99) mg/dL Calcium 9.3 (8.4-10.2) mg/dL AST 35 (17-59) U/L ALT 28 (4-49) U/L Alkaline Phosphatase 80 (38-126) U/L Total Protein 7.2 (6.3-8.2) g/dL Albumin 4.1 (3.5-5.0) g/dL Current Medications Generic Name Dose Route Start Last Admin Trade Name Freq PRN Reason Stop Dose Admin Acetaminophen 650 mg 09/07/21 19:53 Acetaminophen Tab 325 Mg Tab PO Q6HR PRN Mild Pain or Fever > 100.5 Aspirin 81 mg 09/07/21 21:00 09/07/21 20:34 Aspirin 81 Mg PO 81 mg HS DELMA Administration Atorvastatin Calcium 10 mg 09/07/21 21:00 09/07/21 20:35 Atorvastatin 10 Mg Tab PO 10 mg HS DELMA Administration Docusate Sodium 100 mg 09/07/21 19:57 Docusate 100 Mg Cap PO DAILY PRN Constipation Midodrine 5 mg 09/08/21 12:30 Midodrine 5 Mg Tab PO AC-TID DELMA Naloxone HCl 0.2 mg 09/07/21 19:53 Naloxone 0.4 Mg/Ml 1 Ml Vial IV Q2M PRN Opioid Reversal Tamsulosin HCl 0.4 mg 09/07/21 21:00 09/07/21 20:35 Tamsulosin 0.4 Mg Cap.Er.24h PO 0.4 mg HS DELMA Administration Intake and Output 09/07/21 09/08/21 09/08/21 22:59 06:59 14:59 Other: Weight 86.183 kg 09/07/21 18:27 09/07/21 18:27
[2021-09-08] MEDS: SODIUM CHLORIDE 0.9% 1,000 ML IV SCH (09:09)
--- NOTE | 2021-09-08 09:20 | US ---
EXAMINATION TYPE: US kidneys/renal and bladder DATE OF EXAM: 09/08/2021 COMPARISON: US 2019 CLINICAL HISTORY: stepan. Exam done portable EXAM MEASUREMENTS: Right Kidney: 10.5 x 4.3 x 4.0 cm Left Kidney: 9.8 x 4.6 x 4.1 cm Right Kidney: No hydronephrosis or masses seen Left Kidney: No hydronephrosis or masses seen Bladder: wnl Bilateral Jets seen: right jet not seen, left jet seen IMPRESSION: No hydronephrosis or nephrolithiasis.
[2021-09-08 10:14] LABS: Basophils # (A) 0.04 X 10*3/uL (0.00-0.10); Basophils % (A) 0.8 %; Eosinophils # (A) 0.18 X 10*3/uL (0.04-0.35); Eosinophils % (A) 3.5 %; HCT 37.9 % (39.6-50.0); HGB 12.3 g/dL (13.0-17.0); Immature Grans, Automated 0.4 %; Lymphocytes # (A) 1.02 X 10*3/uL (0.90-5.00); Lymphocytes % (A) 19.8 %; MCH 29.9 pg (27.0-32.0); MCHC 32.5 g/dL (32.0-37.0); MCV 92.2 fL (80.0-97.0); Mean Platelet Volume 12.9 fL (9.5-12.2); Monocytes # (A) 0.67 X 10*3/uL (0.20-1.00); NRBC Per 100 WBC 0 /100 WBCS (0.0-0.0); Neutrophils # (A) 3.23 X 10*3/uL (1.80-7.70); Neutrophils % (A) 62.5 %; Platelet Count 150 X 10*3/uL (140-440); RBC 4.11 X 10*6/uL (4.40-5.60); RDW 13.2 % (11.5-14.5); WBC 5.16 X 10*3/uL (4.50-10.00)
[2021-09-08 10:23] LABS: African American GFR (CKD) 58.1 (60.0-200.0); Anion Gap 10.4 mmol/L (10.00-18.00); Blood Urea Nitrogen 22.1 mg/dL (9.0-27.0); Calcium 9.1 mg/dL (8.7-10.3); Carbon Dioxide 23.6 mmol/L (20.0-27.5); Non-African American GFR(CKD) 50.1 (60.0-200.0); Potassium 4.7 mmol/L (3.5-5.5)
[2021-09-08] MEDS ORDERED: ZOLPIDEM 5 MG TAB PO PRN (12:17)
--- NOTE | 2021-09-08 12:19 | P.HPIM ---
History of Present Illness H&P Date: 09/08/21 HISTORY OF PRESENT ILLNESS This is an 85-year-old male patient of Dr. Fall and Dr. Nasim arteaga with past medical history of hypertension, hyperlipidemia, benign prostatic hypertrophy. According to family members at the bedside, patient has had dizziness for the last couple of months. He was recently prescribed midodrine 2.5 mg twice daily from the office however he now states that he did not take any of it. 3 days ago he had a near syncopal episode but did not completely lose consciousness. His walked into the room and he was able to talk and eventually was able to get up on his own. When he stands he gets feeling weak. His blood pressure has been low in the mornings for the past 7-8 days usually around 86/57. He recently stopped nature balance supplement 1-2 days ago and thought his blood pressure was better. He is up calling the office about his blood pressure and dizziness and was told to come in the hospital. Patient was found to be afebrile, heart rate 72, blood pressure initially 131/67 but several hours later blood pressure was 202/103. Orthostatic changes were positive. Pulse ox 96-99% on room air. EKG revealed left bundle branch. CBC was unremarkable. Potassium 5.2, BUN 30 creatinine 1.4. Glucose 113. Liver function tests were normal. Troponin negative on 3 draws. Urinalysis negative for infection there was small leukoesterase and occasional calcium oxalate crystals. Chest x-ray showed no acute cardiopulmonary process. Renal ultrasound revealed no hydronephrosis, no nephrolithiasis. Patient has been placed on the observation unit, cardiology consult, echocardiogram was ordered and cardiology added midodrine at 5 mg 3 times daily. REVIEW OF SYSTEMS Constitutional: No fever, no chills, no night sweats. No weight change. No weakness, fatigue or lethargy. No daytime sleepiness. EENT: No headache. No blurred vision or double vision, no loss of vision. No loss of Hearing, no ringing in the ears, reports dizziness. No nasal drainage or congestion. No epistaxis. No sore throat. Lungs: No shortness of breath, cough, no sputum production. No wheezing. Cardiovascular: No chest pain, no lower extremity edema. No palpitations. No paroxysmal nocturnal dyspnea. No orthopnea. Reports lightheadedness or dizziness. Reports near syncopal episodes. Abdominal: No abdominal pain. No nausea, vomiting. No diarrhea. No constipation. No bloody or tarry stools. No loss of appetite. Genitourinary: No dysuria, increased frequency, urgency. No urinary retention. Musculoskeletal: No myalgias. No muscle weakness, no gait dysfunction, no frequent falls. No back pain. No neck pain. Integumentary: No wounds, no lesions. No rash or pruritus. No unusual bruising. No change in hair or nails. Neurologic: No aphasia. No facial droop. No change in mentation. No head injury. No headache. No paralysis. No paresthesia. Psychiatric: No depression. No anxiety. No mood swings. Endocrine: No abnormal blood sugars. No weight change. SOCIAL HISTORY Patient is a lifelong nonsmoker, no alcohol use, no marijuana or illicit drug use. He does not utilize any DME. He is retired from [employer]. He lives at home with his . FAMILY HISTORY Mother at age 90 from old age with history of Alzheimer's. Father at age 45 from lung cancer. Patient has one sister living at age 87 with no major medical problems. He has one brother the past from an accident. He has 4 children with no major medical problems. PHYSICAL EXAMINATION Gen: This is an 85-year-old male. He is sitting up in bed and appears to be comfortable and in no acute distress. Multiple family members at bedside. HEENT: Head is atraumatic, normocephalic. Pupils equal, round. Sclerae is anicteric. NECK: Supple. No JVD. No lymphadenopathy. No thyromegaly. LUNGS: Clear to auscultation. No wheezes or rhonchi. No intercostal retractions. HEART: Regular rate and rhythm. Systolic murmur. ABDOMEN: Soft. Bowel sounds are present. No masses. No tenderness. EXTREMITIES: No pedal edema. No calf tenderness. Dorsalis pedis palpable bilaterally. NEUROLOGICAL: Patient is awake, alert and oriented x3. Cranial nerves 2 through 12 are grossly intact. ASSESSMENT AND PLAN 1. Presyncopal episodes with orthostatic hypotension and baseline hypertension. Cardiology consult appreciated. Continue cardiac monitoring, monitor orthostatic changes, tMidodrine 5 mg 3 times daily added. 2. History of hypertension. 3. History of cardiomyopathy. 4. Chronic kidney disease stage III with baseline creatinine 1.3. Avoid nephrotoxic agents, monitor renal function. IV fluids decreased to 50 mL per hour. 5. Benign prostatic hypertrophy. Continue Flomax 0.4 mg daily. 6. Hyperlipidemia. Continue atorvastatin 10 mg at bedtime. 7. Insomnia. Patient will be started on Ambien 5 mg at bedtime. 8. GI prophylaxis. Protonix. 9. DVT prophylaxis. Lovenox. Patient will be admitted to the hospital for a minimum of 2 night stay. DISCHARGE PLAN Home in the next 24 hours. Impression and plan of care have been directed as dictated by the signing physician. Sharon Palacios nurse practitioner acting as scribe for signing physician. Past Medical History Past Medical History: GERD/Reflux, Hyperlipidemia, Hypertension, Prostate Disorder History of Any Multi-Drug Resistant Organisms: None Reported Past Surgical History: Joint Replacement, Tonsillectomy Additional Past Surgical History / Comment(s): [facility] knee replacements Past Psychological History: No Psychological Hx Reported Smoking Status: Never smoker Past Alcohol Use History: None Reported Past Drug Use History: None Reported - Past Family History Mother Family Medical History: No Reported History Father Family Medical History: Cancer Additional Family Medical History / Comment(s): lung cancer Medications and Allergies Home Medications Medication Instructions Recorded Confirmed Type Aspirin EC [Ecotrin Low Dose] 81 mg PO HS 02/08/18 09/07/21 History Ergocalciferol (Vitamin D2) 50,000 unit PO WE 02/08/18 09/07/21 History [Vitamin D2] Simvastatin [Zocor] 20 mg PO HS 02/08/18 09/07/21 History Tamsulosin [Flomax] 0.4 mg PO HS 02/08/18 09/07/21 History Docusate [Colace] 100 mg PO DAILY PRN 09/07/21 09/07/21 History Metoprolol Succinate [Toprol XL] 25 mg PO HS 09/07/21 09/07/21 History Midodrine HCl [ProAmantine] 2.5 mg PO BID PRN 09/07/21 09/07/21 History hydrALAZINE HCL [Apresoline] 25 mg PO DAILY PRN 09/07/21 09/07/21 History Allergies Allergy/AdvReac Type Severity Reaction Status Date / Time cyclobenzaprine AdvReac Unknown Verified 09/07/21 18:16 [From Flexeril] Physical Exam Vitals: Vital Signs Temp Pulse Pulse Resp BP BP BP 09/08/21 07:00 97.3 F L 70 22 09/08/21 06:35 109/82 09/08/21 06:00 61 18 194/99 09/08/21 02:00 64 20 211/114 09/08/21 01:00 62 20 202/103 09/07/21 22:12 66 18 184/104 09/07/21 20:42 67 18 191/97 09/07/21 18:17 71 174/91 132/78 09/07/21 16:48 97.5 F L 72 16 131/67 BP Pulse Ox 09/08/21 07:00 176/74 96 09/08/21 06:35 99 09/08/21 06:00 99 09/08/21 02:00 99 09/08/21 01:00 99 09/07/21 22:12 99 09/07/21 20:42 98 09/07/21 18:17 186/94 09/07/21 16:48 98 Intake and Output 09/07/21 09/08/21 09/08/21 22:59 06:59 14:59 Other: Weight 86.183 kg Results CBC & Chem 7: 09/08/21 07:13 09/08/21 07:13 Labs: Abnormal Lab Results - Last 24 Hours (Table) 09/07/21 09/07/21 09/07/21 Range/Units 18:27 18:27 18:27 Lymphocytes # 0.9 L (1.0-4.8) k/uL Potassium 5.2 H (3.5-5.1) mmol/L BUN 30 H (9-20) mg/dL Creatinine 1.43 H (0.66-1.25) mg/dL Glucose 113 H (74-99) mg/dL Ur Leukocyte Esterase Small H (Negative) Calcium Oxalate Crystal Occasional H (None) /hpf Hyaline Casts 3 H (0-2) /lpf Urine Mucus Rare H (None) /hpf
[2021-09-08] MEDS: MIDODRINE 5 MG TAB PO SCH ×2 (13:00→18:42)
--- NOTE | 2021-09-08 19:09 | ECHOF ---
Referral Reason:htn' MEASUREMENTS -------- HEIGHT: 170.2 cm WEIGHT: 86.2 kg BP: RVIDd: 3.6 cm (< 3.3) IVSd: 1.3 cm (0.6 - 1.1) LVIDd: 5.7 cm (3.9 - 5.3) LVPWd: 0.9 cm (0.6 - 1.1) IVSs: 1.4 cm LVIDs: 4.1 cm LVPWs: 1.8 cm LA Diam: 4.5 cm (2.7 - 3.8) LAESV Index (A-L): 50.97 ml/m Ao Diam: 3.0 cm (2.0 - 3.7) AV Cusp: 1.6 cm (1.5 - 2.6) LA Diam: 4.4 cm (2.7 - 3.8) MV EXCURSION: 20.130 mm (> 18.000) MV EF SLOPE: 46 mm/s (70 - 150) EPSS: 1.7 cm AV maxP.83 mmHg AV meanP.55 mmHg AR PHT: 535 ms RAP: 10.00 mmHg RVSP: 50.48 mmHg FINDINGS -------- This was a technically adequate study. The left ventricular size is normal. There is severe global hypokinesis of LV . Overall left vent ricular systolic function is severely impaired with, an EF between 25 - 30 %. The right ventricle is mildly enlarged. LA is severely dilated >40 ml/m2 The right atrial size is normal. There is mild aortic valve sclerosis. There is bitm-dx-agyrebha aortic regurgitation. There is mi ld aortic stenosis present. Peak/mean gradient across the Aortic Valve is 16.83mmHg / 8.55mmHg. Mild mitral annular calcification present. Mild mitral regurgitation is present. Moderate tricuspid regurgitation present. There is moderate to severe pulmonary hypertension. The right ventricular systolic pressure, as measured by Doppler, is 50.48mmHg. Trace/mild (physiologic) pulmonic regurgitation. The aortic root size is normal. There is no pericardial effusion. CONCLUSIONS -------- 1. There is severe global hypokinesis of LV . 2. Overall left ventricular systolic function is severely impaired with, an EF between 25 - 30 %. 3. The right ventricle is mildly enlarged. 4. LA is severely dilated >40 ml/m2 5. There is nvmb-fd-hbexrrhj aortic regurgitation. 6. There is mild aortic stenosis present. 7. Mild mitral regurgitation is present. 8. Moderate tricuspid regurgitation present. 9. There is moderate to severe pulmonary hypertension. 10. Trace/mild (physiologic) pulmonic regurgitation. 11. There is no pericardial effusion. FIELD TEST ENGINEER: Rachana Petersen RDCS
[2021-09-08] MEDS: TAMSULOSIN 0.4 MG CAP.ER.24H PO SCH (22:27)
[2021-09-08] MEDS: ASPIRIN 81 MG PO SCH (22:27)
[2021-09-08] MEDS: ATORVASTATIN 10 MG TAB PO SCH (22:27)
[2021-09-09] MEDS: SODIUM CHLORIDE 0.9% 1,000 ML IV SCH (02:45)
[2021-09-09] MEDS ORDERED: hydrALAZINE HCL 25 MG TAB PO PRN (05:54)
[2021-09-09 07:12] LABS: HCT 39.5 % (39.0-53.0); HGB 13.2 gm/dL (13.0-17.5); MCH 31.2 pg (25.0-35.0); MCHC 33.5 g/dL (31.0-37.0); MCV 93.4 fL (80.0-100.0); Mean Platelet Volume 9.9; Platelet Count 157 k/uL (150-450); RBC 4.23 m/uL (4.30-5.90); RDW 13.6 % (11.5-15.5); WBC 5.5 k/uL (3.8-10.6)
[2021-09-09 07:14] LABS: ALT 24 U/L (4-49); AST 30 U/L (17-59); African American GFR (CKD) 59 (>60 ml/min/1.73 sqM); Albumin 3.5 g/dL (3.5-5.0); Albumin/Globulin Ratio 1.3; Alkaline Phosphatase 71 U/L (38-126); Anion Gap 9 mmol/L; Blood Urea Nitrogen 22 mg/dL (9-20); Calcium 8.9 mg/dL (8.4-10.2); Carbon Dioxide 25 mmol/L (22-30); Chloride 105 mmol/L (98-107); Globulin 2.8 g/dL; Glucose 99 mg/dL (74-99); Non-African American GFR(CKD) 51 (>60 ml/min/1.73 sqM); Potassium 4.1 mmol/L (3.5-5.1); Sodium 139 mmol/L (137-145); Total Bilirubin 0.8 mg/dL (0.2-1.3); Total Protein 6.3 g/dL (6.3-8.2)
[2021-09-09] MEDS: MIDODRINE 5 MG TAB PO SCH ×3 (08:36→17:14)
[2021-09-09] MEDS ORDERED: SPIRONOLACTONE 25 MG TAB PO SCH (09:00)
[2021-09-09] MEDS ORDERED: SACUBITRIL/VALSARTAN 24 MG-26 MG TABLET PO SCH (09:00)
[2021-09-09] MEDS: SACUBITRIL/VALSARTAN 24 MG-26 MG TABLET PO SCH ×2 (09:08→20:38)
--- NOTE | 2021-09-09 10:02 | P.PN ---
Subjective Progress Note Date: 09/09/21 HISTORY OF PRESENT ILLNESS This is an 85-year-old male patient of Dr. Fall and Dr. Nasim arteaga with past medical history of hypertension, hyperlipidemia, benign prostatic h ypertrophy. According to family members at the bedside, patient has had dizziness for the last couple of months. He was recently prescribed midodrine 2.5 mg twice daily from the office however he now states that he did not take any of it. 3 days ago he had a near syncopal episode but did not completely lose consciousness. His walked into the room and he was able to talk and eventually was able to get up on his own. When he stands he gets feeling weak. His blood pressure has been low in the mornings for the past 7-8 days usually around 86/57. He recently stopped nature balance supplement 1-2 days ago and thought his blood pressure was better. He is up calling the office about his blood pressure and dizziness and was told to come in the hospital. Patient was found to be afebrile, heart rate 72, blood pressure initially 131/67 but several hours later blood pressure was 202/103. Orthostatic changes were positive. Pulse ox 96-99% on room air. EKG revealed left bundle branch. CBC was unremarkable. Potassium 5.2, BUN 30 creatinine 1.4. Glucose 113. Liver function tests were normal. Troponin negative on 3 draws. Urinalysis negative for infection there was small leukoesterase and occasional calcium oxalate crystals. Chest x-ray showed no acute cardiopulmonary process. Renal ultrasound revealed no hydronephrosis, no nephrolithiasis. Patient has been placed on the observation unit, cardiology consult, echocardiogram was ordered and cardiology added midodrine at 5 mg 3 times daily. 09/09: Patient was started on losartan yesterday and his blood pressure dropped to 87 systolic, losartan was discontinued. By the evening, patient again had hypotension 207/99 and this morning blood pressure 81/45. The following changes have been made: Discontinue as needed hydralazine XL 25 mg at bedtime, midodrine at 5 mg 3 times daily, continue Toprol-XL 25 mg at bedtime, addEntresto half tablet twice daily. No plan for Aldactone. Case discussed with Dr. Angel on. Patient has been instructed to sleep with his head up to avoid distribution clerk hypotension and DIMA hose ordered. Cortisol level and aldosterone levels ordered. IV fluids discontinued. repeat blood work reveals unremarkable CBC. BUN 22 and creatinine 1.28. He has been evaluated by PT and OT with recommenda tions for home with family. Patient's and daughter at bedside and all questions have been answered. REVIEW OF SYSTEMS Constitutional: No fever, no chills, no night sweats. No weight change. No weakness, fatigue or lethargy. No daytime sleepiness. EENT: No headache. No blurred vision or double vision, no loss of vision. No loss of Hearing, no ringing in the ears, reports dizziness. No nasal drainage or congestion. No epistaxis. No sore throat. Lungs: No shortness of breath, cough, no sputum production. No wheezing. Cardiovascular: No chest pain, no lower extremity edema. No palpitations. No paroxysmal nocturnal dyspnea. No orthopnea. Reports lightheadedness or dizziness especially in the morning. Reports near syncopal episodes. Abdominal: No abdominal pain. No nausea, vomiting. No diarrhea. No constipation. No bloody or tarry stools. No loss of appetite. Genitourinary: No dysuria, increased frequency, urgency. No urinary retention. Musculoskeletal: No myalgias. No muscle weakness, no gait dysfunction, no frequent falls. No back pain. No neck pain. Integumentary: No wounds, no lesions. No rash or pruritus. No unusual bruising. No change in hair or nails. Neurologic: No aphasia. No facial droop. No change in mentation. No head injury. No headache. No paralysis. No paresthesia. Psychiatric: No depression. No anxiety. No mood swings. Endocrine: No abnormal blood sugars. No weight change. PHYSICAL EXAMINATION Gen: This is an 85-year-old male. He is sitting up in bed and appears to be comfortable and in no acute distress. Patient's and daughter at bedside. HEENT: Head is atraumatic, normocephalic. Pupils equal, round. Sclerae is anicteric. NECK: Supple. No JVD. No lymphadenopathy. No thyromegaly. LUNGS: Clear to auscultation. No wheezes or rhonchi. No intercostal r etractions. HEART: Regular rate and rhythm. Systolic murmur. ABDOMEN: Soft. Bowel sounds are present. No masses. No tenderness. EXTREMITIES: No pedal edema. No calf tenderness. Dorsalis pedis palpable bilaterally. NEUROLOGICAL: Patient is awake, alert and oriented x3. Cranial nerves 2 through 12 are grossly intact. ASSESSMENT AND PLAN 1. Presyncopal episodes with severe orthostatic hypotension and baseline hypertension. Cardiology consult appreciated. Continue cardiac monitoring, monitor orthostatic changes, Midodrine 5 mg 3 times daily. 2. History of hypertension. 3. History of nonischemic cardiomyopathy. Patient started on Entresto half tablet twice daily, continue metoprolol. 4. Chronic kidney disease stage III with baseline creatinine 1.3. Avoid nephrotoxic agents, monitor renal function. 5. Benign prostatic hypertrophy. Continue Flomax 0.4 mg daily. 6. Hyperlipidemia. Continue atorvastatin 10 mg at bedtime. 7. Insomnia. Continue on Ambien 5 mg at bedtime. 8. GI prophylaxis. Protonix. 9. DVT prophylaxis. Lovenox. DISCHARGE PLAN Home in the next 24 hours. Impression and plan of care have been directed as dictated by the signing physician. Sharon Palacios nurse practitioner acting as scribe for signing physician. Objective - Vital Signs Vital signs: Vital Signs Temp 98.2 F 09/09/21 07:43 Pulse 79 09/09/21 07:58 Resp 18 09/09/21 07:43 BP 161/78 09/09/21 07:58 Pulse Ox 96 09/09/21 07:43 Intake & Output 09/08/21 09/09/21 09/09/21 18:59 06:59 18:59 Intake Total 1000 Balance 1000 Weight 86.183 kg Intake: Intake, IV Titration 1000 Amount Sodium Chloride 0.9% 1, 1000 000 ml @ 100 mls/hr IV . Q10H STA Rx#:[id number] Other: Voiding Method Toilet Toilet # Voids 2 - Labs CBC & Chem 7: 09/09/21 06:16 09/09/21 06:16 Labs: Abnormal Lab Results - Last 24 Hours (Table) 09/08/21 09/08/21 09/09/21 Range/Units 07:13 07:13 06:16 RBC 4.11 L (4.40-5.60) X 10*6/uL Hgb 12.3 L (13.0-17.0) g/dL Hct 37.9 L (39.6-50.0) % MPV 12.9 H (9.5-12.2) fL BUN 22 H (9-20) mg/dL Creatinine 1.28 H (0.66-1.25) mg/dL Est GFR (CKD-EPI)AfAm 58.1 L (60.0-200.0) Est GFR (CKD-EPI)NonAf 50.1 L (60.0-200.0) Glucose 115 H (70-110) mg/dL 09/09/21 Range/Units 06:16 RBC 4.23 L (4.40-5.60) X 10*6/uL Hgb (13.0-17.0) g/dL Hct (39.6-50.0) % MPV (9.5-12.2) fL BUN (9-20) mg/dL Creatinine (0.66-1.25) mg/dL Est GFR (CKD-EPI)AfAm (60.0-200.0) Est GFR (CKD-EPI)NonAf (60.0-200.0) Glucose (70-110) mg/dL
--- NOTE | 2021-09-09 11:00 | P.PN ---
Subjective Progress Note Date: 09/09/21 HISTORY OF PRESENT ILLNESS: The patient is an 85-year-old male with a history of hypertension and hyperlipidemia who presented with symptoms of dizziness and presyncope. The symptoms occur when he is standing and 3 days ago he had a presyncopal episode, fell to the ground but did not lose consciousness completely. He is usually active physically, denies any chest discomfort, palpitations or dyspnea. He underwent cardiac catheterization by Dr. Rouse in June 2018 and had no evidence of obstructive CAD. There is a reported echocardiogram from July 2020 with a severely impaired systolic function was mild to moderate mitral regurgitation and moderate tricuspid regurgitation. He cannot recall any history of CHF or CAD. His EKG showed left bundle branch block that was noted in 2018. He has a history of hypertension and hyperlipidemia, is a nondiabetic nonsmoker. He denies any peripheral edema. He has no associated palpitations with the symptoms. His energy is stable. When he checks his blood pressure home during the events his blood pressure is quite low. He was noted to be orthostatic upon admission. His medication at home include hydralazine on a when necessary basis, metoprolol succinate 25 mg daily, Flomax, simvastatin 20 g daily, aspirin, midodrine on a when necessary basis 09/09/2021 Patient examined this morning at the bedside. Patient denies chest pain or pressure. Denies SOB. Patient denies dizziness or lightheadedness. Patient was hypertensive overnight with a blood pressure of 207/99. Patient's orthostatic blood pressures this morning remained positive. Blood pressure supine 161/78. Blood pressure standing 81/45. PHYSICAL EXAM: VITAL SIGNS: Reviewed. GENERAL: Well-developed in no acute distress. NECK: Supple. No JVD or thyromegaly LUNGS: Respirations even and unlabored. Lungs essentially clear to auscultation bilaterally. HEART: Regular rate and rhythm. S1 and S2 heard. Systolic murmur. EXTREMITIES: Normal range of motion. No clubbing or cyanosis. Peripheral pulses intact. No lower extremity edema ASSESSMENT: 1. Presyncopal episodes with significant orthostatic hypotension and baseline hypertension. There is no clear evidence to suggest arrhythmia as the etiology of his presentation. 2. Prior history of cardiomyopathy with no evidence of CHF on examination 3. Probable dehydration with abnormal renal functions not documented in 2019 4. History of hypertension at baseline 5. History of hyperlipidemia 6. Chronic left bundle branch block PLAN: Cardiac medications changes made per internal medicine this morning Continue to monitor blood pressure Daily orthostatics Recommend DIMA hose to bilateral lower extremities Further recommendations pending patient course Nurse practitioner note has been reviewed by physician. Signing provider agrees with the documented findings, assessment, and plan of care. Objective - Vital Signs Vital signs: Vital Signs Temp 98.2 F 09/09/21 07:43 Pulse 79 09/09/21 07:58 Resp 18 09/09/21 07:43 BP 161/78 09/09/21 07:58 Pulse Ox 96 09/09/21 07:43 Intake & Output 09/08/21 09/09/21 09/09/21 18:59 06:59 18:59 Intake Total 1000 Balance 1000 Weight 86.183 kg Intake: Intake, IV Titration 1000 Amount Sodium Chloride 0.9% 1, 1000 000 ml @ 100 mls/hr IV . Q10H STA Rx#:[id number] Other: Voiding Method Toilet Toilet # Voids 2 - Labs CBC & Chem 7: 09/09/21 06:16 09/09/21 06:16 Labs: Abnormal Lab Results - Last 24 Hours (Table) 09/09/21 09/09/21 Range/Units 06:16 06:16 RBC 4.23 L (4.30-5.90) m/uL BUN 22 H (9-20) mg/dL Creatinine 1.28 H (0.66-1.25) mg/dL
[2021-09-09] MEDS: ASPIRIN 81 MG PO SCH (20:38)
[2021-09-09] MEDS: TAMSULOSIN 0.4 MG CAP.ER.24H PO SCH (20:38)
[2021-09-09] MEDS: ATORVASTATIN 10 MG TAB PO SCH (20:38)
[2021-09-09] MEDS ORDERED: METOPROLOL SUCCINATE (ER) 25 MG TAB.ER.24H PO SCH (21:00)
[2021-09-09] MEDS ORDERED: MELATONIN 3 MG TABLET PO SCH (21:00)
[2021-09-10 07:26] VITALS: BP 174/84; PULSE 65; RESP 17; TEMP 97.9
--- NOTE | 2021-09-10 08:03 | P.DS ---
Providers Date of admission: 09/09/21 08:08 Expected date of discharge: 09/10/21 Attending physician: Juan Fall Consults: 09/09/21 08:06 Consult Physician Routine Consulting Provider: Adelita House Consult Reason/Comments: hypotension/htn Do you want consulting provider notified?: Already Contacted Primary care physician: [facility] Course: HISTORY OF PRESENT ILLNESS This is an 85-year-old male patient of Dr. Fall and Dr. Nasim arteaga with past medical history of hypertension, hyperlipidemia, benign prostatic hypertrophy. According to family members at the bedside, patient has had dizziness for the last couple of months. He was recently prescribed midodrine 2.5 mg twice daily from the office however he now states that he did not take any of it. 3 days ago he had a near syncopal episode but did not completely lose consciousness. His walked into the room and he was able to talk and eventually was able to get up on his own. When he stands he gets feeling weak. His blood pressure has been low in the mornings for the past 7-8 days usually around 86/57. He recently stopped nature balance supplement 1-2 days ago and thought his blood pressure was better. He is up calling the office about his blood pressure and dizziness and was told to come in the hospital. Patient was found to be afebrile, heart rate 72, blood pressure initially 131/67 but several hours later blood pressure was 202/103. Orthostatic changes were positive. Pulse ox 96-99% on room air. EKG revealed left bundle branch. CBC was unremarkable. Potassium 5.2, BUN 30 creatinine 1.4. Glucose 113. Liver function tests were normal. Troponin negative on 3 draws. Urinalysis negative for infection there was small leukoesterase and occasional calcium oxalate crystals. Chest x-ray showed no acute cardiopulmonary process. Renal ultrasound revealed no hydronephrosis, no nephrolithiasis. Patient has been placed on the observation unit, cardiology consult, echocardiogram was ordered and cardiology added midodrine at 5 mg 3 times daily. 09/09: Patient was started on losartan yesterday and his blood pressure dropped to 87 systolic, losartan was discontinued. By the evening, patient again had hypotension 207/99 and this morning blood pressure 81/45. The following changes have been made: Discontinue as needed hydralazine XL 25 mg at bedtime, midodrine at 5 mg 3 times daily, continue Toprol-XL 25 mg at bedtime, addEntresto half tablet twice daily. No plan for Aldactone. Case discussed with Dr. Angel on. Patient has been instructed to sleep with his head up to avoid hadoop admin hypotension and DIMA hose ordered. Cortisol level and aldosterone levels ordered. IV fluids discontinued. repeat blood work reveals unremarkable CBC. BUN 22 and creatinine 1.28. He has been evaluated by PT and OT with recommendations for home with family. Patient's and daughter at bedside and all questions have been answered. 09/10: Patient states that he is feeling well this morning. He denies lightlheadedness or dizziness, he states he has been up to the bathroom withou issue. Patient continues to have significant orthostatic changes. BP changes from 180/89 - 109/65. Patient maintained on Entresto, midodrine and metoprolol. Multiple family members are here, condition and prognosis have been reviewed with the patient and family and all questions have been answered. All questions have been ansered. Plan for early and frequent follow up after discharge. Patient will be discharged home today in stable condition. DISCHARGE DIAGNOSES 1. Presyncopal episodes with severe orthostatic hypotension and baseline hypertension. 2. History of hypertension. 3. History of nonischemic cardiomyopathy. 4. Chronic kidney disease stage III with baseline creatinine 1.3. 5. Benign prostatic hypertrophy. 6. Hyperlipidemia. 7. Insomnia. DISCHARGE PLAN Home Greater than 35 minutes was utilized and coordinating patient's discharge. Impression and plan of care have been directed as dictated by the signing physician. Sharon Palacios nurse practitioner acting as scribe for signing physician. Patient Condition at Discharge: Good Plan - Discharge Summary Discharge Rx Participant: No New Discharge Prescriptions: New Sacubitril/Valsartan [Entresto 24 mg-26 mg Tablet] 0.5 each PO BID #30 tablet Midodrine [ProAmatine] 5 mg PO AC-TID #90 tab Continue Aspirin EC [Ecotrin Low Dose] 81 mg PO HS Tamsulosin [Flomax] 0.4 mg PO HS Simvastatin [Zocor] 20 mg PO HS Ergocalciferol (Vitamin D2) [Vitamin D2] 50,000 unit PO WE Docusate [Colace] 100 mg PO DAILY PRN PRN Reason: Constipation Metoprolol Succinate [Toprol XL] 25 mg PO HS Discontinued Midodrine HCl [ProAmantine] 2.5 mg PO BID PRN PRN Reason: LOW BP hydrALAZINE HCL [Apresoline] 25 mg PO DAILY PRN PRN Reason: BP >160 Discharge Medication List Aspirin EC [Ecotrin Low Dose] 81 mg PO HS 02/08/18 [History] Ergocalciferol (Vitamin D2) [Vitamin D2] 50,000 unit PO WE 02/08/18 [History] Simvastatin [Zocor] 20 mg PO HS 02/08/18 [History] Tamsulosin [Flomax] 0.4 mg PO HS 02/08/18 [History] Docusate [Colace] 100 mg PO DAILY PRN 09/07/21 [History] Metoprolol Succinate [Toprol XL] 25 mg PO HS 09/07/21 [History] Midodrine [ProAmatine] 5 mg PO AC-TID #90 tab 09/10/21 [Rx] Sacubitril/Valsartan [Entresto 24 mg-26 mg Tablet] 0.5 each PO BID #30 tablet 09/10/21 [Rx] Follow up Appointment(s)/Referral(s): Juan Fall MD [Primary Care Provider] - 1 Week Adarsh Rouse MD [STAFF PHYSICIAN] - 1 Week [facility] [NON-STAFF] - As Needed (Supplier of four wheeled walker) Discharge Disposition: HOME SELF-CARE
[2021-09-10] MEDS: SACUBITRIL/VALSARTAN 24 MG-26 MG TABLET PO SCH (08:39)
[2021-09-10] MEDS: MIDODRINE 5 MG TAB PO SCH (08:42)
[2021-09-10] MEDS ORDERED: ENOXAPARIN 40 MG/0.4 ML SYRINGE SQ SCH (09:00)
--- NOTE | 2021-09-10 18:59 | P.PN ---
Subjective Progress Note Date: 09/10/21 PROGRESS NOTE The patient is feeling better today, has no further symptoms of dizziness. He has been ambulating without difficulty. He denies any chest pain or palpitations. He continues to be in sinus mechanism. PHYSICAL EXAMINATION: Blood pressure 137/79 sitting heart rate 98 LUNGS: Clear to auscultation HEART: Regular rate and rhythm, S1, S2. No S3. systolic ejection murmur ABDOMEN: Soft, nontender, no organomegaly EXTREMETIES: No edema LAB: BUN 22, creatinine 1.28 IMPRESSION: 1. Severe orthostatic hypotension 2. Severe cardiomyopathy, noted in the past 3. Supine hypertension 4. Chronic kidney disease PLAN: The patient will continue on his present medical therapy, he'll be discharged h ome today and follow-up with Dr. Rouse as an outpatient. Objective - Vital Signs Vital signs: Vital Signs Temp 97.9 F 09/10/21 07:00 Pulse 65 09/10/21 07:00 Resp 17 09/10/21 07:00 BP 174/84 09/10/21 07:00 Pulse Ox 97 09/10/21 07:00 Intake & Output 09/09/21 09/10/21 09/10/21 18:59 06:59 18:59 Intake Total 118 Balance 118 Intake: Oral 118 Other: Voiding Method Toilet Toilet # Voids 2 4 - Labs CBC & Chem 7: 09/09/21 06:16 09/09/21 06:16
== END 2021-09-10 09:48 | disposition home or self-care (01) ==
LOC: EC 16:34 → 6NMEDSUR 19:53 → OBSVTOIN 09-09 08:08 → INTOOBSV 09-09 08:08 → UNDODISIN 09-10 09:48
PROVIDERS: ADMIT Internal Medicine Geriatric Medicine; ATTEND Internal Medicine Geriatric Medicine
DX: I95.1 Orthostatic hypotension (principal); I12.9 Hypertensive chronic kidney disease with stage 1 through stage 4 chronic kidney disease, or unspecified chronic kidney disease; N18.30 Chronic kidney disease, stage 3 unspecified; N17.9 Acute kidney failure, unspecified; E78.5 Hyperlipidemia, unspecified; N40.0 Benign prostatic hyperplasia without lower urinary tract symptoms; T44.4X6A Underdosing of predominantly alpha-adrenoreceptor agonists, initial encounter; Z91.14 Patient's other noncompliance with medication regimen; I42.8 Other cardiomyopathies; G47.00 Insomnia, unspecified; K21.9 Gastro-esophageal reflux disease without esophagitis; I08.3 Combined rheumatic disorders of mitral, aortic and tricuspid valves; I44.7 Left bundle-branch block, unspecified; Z96.653 Presence of artificial knee joint, bilateral; Z79.82 Long term (current) use of aspirin; Z79.899 Other long term (current) drug therapy; Z88.8 Allergy status to other drugs, medicaments and biological substances; W19.XXXA Unspecified fall, initial encounter; Z82.0 Family history of epilepsy and other diseases of the nervous system; Z80.1 Family history of malignant neoplasm of trachea, bronchus and lung
CPT/HCPCS: 96361 ×3; 96360; 99285; 36415; 93005; 93306; 97162; 97166; 80053 ×2; 80048; 82533; 82088; 84484 ×2; 85025 ×2; 85027; 81001; 71045; 76770; G0378 ×4

== ENCOUNTER 2023-01-26 11:07 | Observation (INO) | payer MEDICARE ==
--- NOTE | 2023-01-26 11:37 | ED ---
General Adult HPI - General Chief complaint: Shortness of Breath Stated complaint: abn ekg Source: patient Mode of arrival: wheelchair Limitations: no limitations - History of Present Illness Initial comments: 87-year-old male presents with chief complaint of shortness of breath. Patient has history of CHF. States has been more short of breath than usual over the past few weeks. Seen at urgent care and there was found to have new onset A. fib. Was sent here for further evaluation. Currently denies chest pain. Denies fever or cough. - Related Data Home Medications Medication Instructions Recorded Confirmed Aspirin EC [Ecotrin Low Dose] 81 mg PO HS 02/08/18 09/07/21 Ergocalciferol (Vitamin D2) 50,000 unit PO WE 02/08/18 09/07/21 [Vitamin D2] Simvastatin [Zocor] 20 mg PO HS 02/08/18 09/07/21 Tamsulosin [Flomax] 0.4 mg PO HS 02/08/18 09/07/21 Docusate [Colace] 100 mg PO DAILY PRN 09/07/21 09/07/21 Metoprolol Succinate [Toprol XL] 25 mg PO HS 09/07/21 09/07/21 Previous Rx's Medication Instructions Recorded Midodrine [ProAmatine] 5 mg PO AC-TID #90 tab 09/10/21 Sacubitril/Valsartan [Entresto 24 0.5 each PO BID #30 tablet 09/10/21 mg-26 mg Tablet] Allergies Allergy/AdvReac Type Severity Reaction Status Date / Time cyclobenzaprine AdvReac Unknown Verified 01/26/23 11:35 [From Flexeril] Review of Systems ROS Statement: Those systems with pertinent positive or pertinent negative responses have been documented in the HPI. ROS Other: All systems not noted in ROS Statement are negative. Past Medical History Past Medical History: GERD/Reflux, Hyperlipidemia, Hypertension, Prostate Disorder Additional Past Medical History / Comment(s): BPH, occasional low back pain, occasional constipation. History of Any Multi-Drug Resistant Organisms: None Reported Past Surgical History: Joint Replacement, Tonsillectomy Additional Past Surgical History / Comment(s): [facility]raim knee replacements Past Anesthesia/Blood Transfusion Reactions: No Reported Reaction Additional Past Anesthesia/Blood Transfusion Reaction / Comment(s): Pt received blood as an infant but cannot recall reason. Past Psychological History: No Psychological Hx Reported Smoking Status: Never smoker Past Alcohol Use History: None Reported Past Drug Use History: None Reported - Past Family History Mother Family Medical History: No Reported History Father Family Medical History: Cancer Additional Family Medical History / Comment(s): lung cancer General Exam Limitations: no limitations General appearance: alert, in no apparent distress Eye exam: Present: normal appearance Neck exam: Present: normal inspection Respiratory exam: Present: rhonchi Cardiovascular Exam: Present: regular rate, irregular rhythm Extremities exam: Present: normal inspection Back exam: Present: normal inspection Neurological exam: Present: alert, oriented X3 Skin exam: Present: warm, dry Course Vital Signs 01/26/23 11:32 Temperature 97.8 F Pulse Rate 100 Respiratory 18 Rate Blood Pressure 131/89 O2 Sat by Pulse 97 Oximetry Medical Decision Making - Medical Decision Making Was pt. sent in by a medical professional or institution (FAMILIA Shanks, TEACHERS' ASSISTANT, urgent care, hospital, or long-term...) When possible be specific @ -Urgent care Did you speak to anyone other than the patient for history (EMS, parent, family, police, friend...)? What history was obtained from this source @ -No Did you review nursing and triage notes (agree or disagree)? Why? @ -I reviewed and agree with nursing and triage notes Were old charts reviewed (outside hosp., previous admission, EMS record, old EKG, old radiological studies, urgent care reports/EKG's, long-term records)? Report findings @ -Old charts reviewed showing history of CHF Differential Diagnosis (chest pain, altered mental status, abdominal pain women, abdominal pain men, vaginal bleeding, weakness, fever, dyspnea, syncope, headache, dizziness, GI bleed, back pain, seizure, CVA, palpatations, mental health, musculoskeletal)? @ -Differential Palpitations Ventricular arrhythmias, atrial arrhythmias, myocardial infarction, anemia, thyrotoxicosis, electrolyte imbalance, hypokalemia, pulmonary embolism, pulmonary disease, drugs, alcohol, anxiety, stress.... This is not meant to be an all-inclusive list. EKG interpreted by me (3pts min.). @ -As above X-rays interpreted by me (1pt min.). @ -Section interpreted by me. Shows evidence of CHF. No other acute findings. CT interpreted by me (1pt min.). @ -None done U/S interpreted by me (1pt. min.). @ -None done What testing was considered but not performed or refused? (CT, X-rays, U/S, labs)? Why? @ -None What meds were considered but not given or refused? Why? @ -None Did you discuss the management of the patient with other professionals (professionals i.e. DrTyrone, PA, TEACHERS' ASSISTANT, lab, RT, psych nurse, social services designee, divorce lawyer, teacher, small business banking officer, case folder)? Give summary @ -Discussed with Dr. Anguiano, who advised starting the patient on Heparin with new onset a-fib Was smoking cessation discussed for >3mins.? @ -No Was critical care preformed (if so, how long)? @ -No Were there social determinants of health that impacted care today? How? (Homelessness, low income, unemployed, alcoholism, drug addiction, transportation, low edu. Level, literacy, decrease access to med. care, care home, rehab)? @ -No Was there de-escalation of care discussed even if they declined (Discuss DNR or withdrawal of care, Hospice)? DNR status @ -No What co-morbidities impacted this encounter? (DM, HTN, Smoking, COPD, CAD, Canc er, CVA, ARF, Chemo, Hep., AIDS, mental health diagnosis, sleep apnea, morbid obesity)? @ -CHF Was patient admitted / discharged? Hospital course, mention meds given and route, prescriptions, significant lab abnormalities, going to OR and other pertinent info. @ -Admission. Laboratory studies significant for kidney injury with a BUN of 27 and creatinine of 1.46, BNP 7940. Otherwise no significant findings. X-ray shows evidence of CHF. Spoke with Dr. Anguiano, satting admission and advised starting the patient on heparin. Patient will be admitted due to CHF exacerbation and new onset A. fib with consult to cardiology. Undiagnosed new problem with uncertain prognosis? @ -No Drug Therapy requiring intensive monitoring for toxicity (Heparin, Nitro, Insulin, Cardizem)? @ -Yes, heparin Were any procedures done? @ -No Diagnosis/symptom? @ -CHF exacerbation, New onset a-fib, JUSTIN Acute, or Chronic, or Acute on Chronic? @ -Acute on chronic, acute, or acute Uncomplicated (without systemic symptoms) or Complicated (systemic symptoms)? @ -Uncomplicated Side effects of treatment? @ -No Exacerbation, Progression, or Severe Exacerbation? @ -CHF exacerbation. Poses a threat to life or bodily function? How? (Chest pain, USA, SC, pneumonia, PE, COPD, DKA, ARF, appy, cholecystitis, CVA, Diverticulitis, Homicidal, Pastor icidal, threat to staff... and all critical care pts) @ -No - Lab Data Result diagrams: 01/26/23 12:10 01/26/23 12:10 Lab Results 01/26/23 01/26/23 Range/Units 12:10 12:10 WBC 6.9 (3.8-10.6) k/uL RBC 4.01 L (4.30-5.90) m/uL Hgb 12.6 L (13.0-17.5) gm/dL Hct 39.3 (39.0-53.0) % MCV 98.1 (80.0-100.0) fL MCH 31.4 (25.0-35.0) pg MCHC 32.0 (31.0-37.0) g/dL RDW 13.5 (11.5-15.5) % Plt Count 128 L (150-450) k/uL MPV 11.7 Neutrophils % 78 % Lymphocytes % 14 % Monocytes % 6 % Eosinophils % 1 % Basophils % 0 % Neutrophils # 5.3 (1.3-7.7) k/uL Lymphocytes # 0.9 L (1.0-4.8) k/uL Monocytes # 0.4 (0-1.0) k/uL Eosinophils # 0.1 (0-0.7) k/uL Basophils # 0.0 (0-0.2) k/uL Manual Slide Review Performed Hypochromasia Slight Sodium 140 (137-145) mmol/L Potassium 4.6 (3.5-5.1) mmol/L Chloride 108 H (98-107) mmol/L Carbon Dioxide 22 (22-30) mmol/L Anion Gap 10 mmol/L BUN 27 H (9-20) mg/dL Creatinine 1.46 H (0.66-1.25) mg/dL Est GFR (CKD-EPI)AfAm 50 (>60 ml/min/1.73 sqM) Est GFR (CKD-EPI)NonAf 43 (>60 ml/min/1.73 sqM) Glucose 123 H (74-99) mg/dL Calcium 9.2 (8.4-10.2) mg/dL Total Bilirubin 0.8 (0.2-1.3) mg/dL AST 31 (17-59) U/L ALT 30 (4-49) U/L Alkaline Phosphatase 74 (38-126) U/L NT-Pro-B Natriuret Pep 7940 pg/mL Total Protein 7.0 (6.3-8.2) g/dL Albumin 4.1 (3.5-5.0) g/dL - EKG Data EKG Comments: EKG shows A. fib at 93 beats for minute QRS 166, QT/QTc 406/456. Disposition Clinical Impression: CHF exacerbation, New onset a-fib, JUSTIN (acute kidney injury) Disposition: ADMITTED IP TO THIS HOSP Condition: Good Referrals: Juan Fall MD [Primary Care Provider] - 1-2 days Time of Disposition: 14:14
[2023-01-26 12:27] LABS: Basophils % (A) 0 %; Eosinophils % (A) 1 %; HCT 39.3 % (39.0-53.0); HGB 12.6 gm/dL (13.0-17.5); Hypochromasia Slight; Lymphocytes % (A) 14 %; MCH 31.4 pg (25.0-35.0); MCV 98.1 fL (80.0-100.0); Mean Platelet Volume 11.7; Monocytes % (A) 6 %; Neutrophils % (A) 78 %; RBC 4.01 m/uL (4.30-5.90); RDW 13.5 % (11.5-15.5); WBC 6.9 k/uL (3.8-10.6)
[2023-01-26 12:28] LABS: Eosinophils # (A) 0.1 k/uL (0-0.7); Lymphocytes # (A) 0.9 k/uL (1.0-4.8); Monocytes # (A) 0.4 k/uL (0-1.0); Neutrophils # (A) 5.3 k/uL (1.3-7.7)
[2023-01-26 12:51] LABS: ALT 30 U/L (4-49); AST 31 U/L (17-59); African American GFR (CKD) 50 (>60 ml/min/1.73 sqM); Albumin 4.1 g/dL (3.5-5.0); Alkaline Phosphatase 74 U/L (38-126); Anion Gap 10 mmol/L; Blood Urea Nitrogen 27 mg/dL (9-20); Calcium 9.2 mg/dL (8.4-10.2); Carbon Dioxide 22 mmol/L (22-30); Chloride 108 mmol/L (98-107); Glucose 123 mg/dL (74-99); Non-African American GFR(CKD) 43 (>60 ml/min/1.73 sqM); Potassium 4.6 mmol/L (3.5-5.1); Sodium 140 mmol/L (137-145); Total Bilirubin 0.8 mg/dL (0.2-1.3)
[2023-01-26 13:00] LABS: NT-Pro-B-Type Natriuretic Pept 7940 pg/mL
--- NOTE | 2023-01-26 13:15 | XR ---
EXAMINATION TYPE: XR chest 2V DATE OF EXAM: 01/26/2023 COMPARISON: 09/07/2021 HISTORY: Shortness of breath TECHNIQUE: Frontal and lateral views of the chest are obtained. FINDINGS: Scattered senescent parenchymal changes noted. Hyperinflation compatible with COPD. No evidence for infiltrate. No evidence for atelectasis. There is continued cardiomegaly with pulmonary venous congestion and small pleural effusions. Small a mount of fluid is seen within the fissures. Mediastinal structures are stable and grossly unremarkable. No evidence for hilar prominence. Degenerative changes dorsal spine. IMPRESSION: 1. Borderline changes of congestive failure.
[2023-01-26 13:40] LABS: Platelet Count 128 k/uL (150-450)
[2023-01-26] MEDS ORDERED: HEPARIN SODIUM 1,000 UN/ML (10ML VL) IV PRN (14:08)
[2023-01-26] MEDS ORDERED: HEPARIN SODIUM 1,000 UN/ML (10ML VL) IV ONE (14:08)
[2023-01-26] MEDS ORDERED: HEPARIN SOD,PORK IN 0.45% NACL 25,000 UNIT in 0.45% NACL 1 250ML.BAG IV SCH (14:15)
[2023-01-26] MEDS ORDERED: NITROGLYCERIN SL TABS 0.4 MG TAB SUBLINGUAL PRN (14:54)
[2023-01-26] MEDS: FUROSEMIDE 10 MG/ML 4 ML VIAL IV SCH ×2 (15:26→20:46)
[2023-01-26 15:36] LABS: Basophils % (A) 0 %; Eosinophils # (A) 0.1 k/uL (0-0.7); Eosinophils % (A) 1 %; HCT 38.4 % (39.0-53.0); HGB 12.5 gm/dL (13.0-17.5); Hypochromasia Slight; INR 1.1 (<1.2); Lymphocytes # (A) 0.9 k/uL (1.0-4.8); Lymphocytes % (A) 15 %; MCH 31.7 pg (25.0-35.0); MCHC 32.4 g/dL (31.0-37.0); MCV 97.8 fL (80.0-100.0); Mean Platelet Volume 11.3; Monocytes # (A) 0.4 k/uL (0-1.0); Monocytes % (A) 6 %; Neutrophils # (A) 4.7 k/uL (1.3-7.7); Neutrophils % (A) 77 %; Partial Thromboplastin Time 23.9 sec (22.0-30.0); Platelet Count 117 k/uL (150-450); Prothrombin Time 11.8 sec (9.0-12.0); RBC 3.93 m/uL (4.30-5.90); RDW 13.7 % (11.5-15.5); WBC 6.2 k/uL (3.8-10.6)
--- NOTE | 2023-01-26 15:48 | P.HPIM ---
History of Present Illness H&P Date: 01/26/23 Chief Complaint: Shortness of breath * 85-year-old gentleman with past medical history significant for congestive heart failure ejection fraction of 30%, hypertension, hyperlipidemia, BPH previously seen by cardiology in September 2021, history of chronic kidney disease stage III presented to the emergency department with complaints of shortness of breath, worsening lower extremity edema. At the time of presentation in ER patient was noted to have episode of A. fib with controlled heart rate * Workup initiated in ER included basic metabolic panel which showed Normal 1.46, troponin is ordered pending, liver profile within normal limits, CBC shows hemoglobin of 12.6 platelet of 128 WBC 6.9 * Patient was seen in ER waiting area, out from ED provider EKG obtained at the time of presentation did show A. fib. And repeat EKG ordered * Patient to be admitted to medical floor with consultations from cardiology REVIEW OF SYSTEMS: Shortness of breath, lower extremity edema CONSTITUTIONAL: No fever, no malaise, no fatigue. HEENT: No recent visual problems or hearing problems. Denied any sore throat. CARDIOVASCULAR: No chest pain, orthopnea, PND, no palpitations, no syncope. PULMONARY: No , no cough, no hemoptysis. GASTROINTESTINAL: No diarrhea, no nausea, no vomiting, no abdominal pain. NEUROLOGICAL: No headaches, no weakness, no numbness. HEMATOLOGICAL: Denies any bleeding or petechiae. GENITOURINARY: Denies any burning micturition, frequency, or urgency. MUSCULOSKELETAL/RHEUMATOLOGICAL: Denies any joint pain, swelling, or any muscle pain. ENDOCRINE: Denies any polyuria or polydipsia. PHYSICAL EXAMINATION: GENERAL: The patient is alert and oriented x3, not in any acute distress. HEENT: Pupils are round and equally reacting to light. EOMI. CARDIOVASCULAR: S1 and S2 present. Irregular rhythm, tachycardia noted, bilateral leg edema PULMONARY: Decreased breath sounds bilaterally rhonchi audible to ABDOMEN: Soft, nontender, nondistended, normoactive bowel sounds. No palpable organomegaly. MUSCULOSKELETAL: No joint swelling or deformity. EXTREMITIES: No cyanosis, clubbing, or pedal edema. NEUROLOGICAL: Gross neurological examination did not reveal any focal deficits. SKIN: No rashes. Past Medical History Past Medical History: GERD/Reflux, Hyperlipidemia, Hypertension, Prostate Disorder Additional Past Medical History / Comment(s): BPH, occasional low back pain, occasional constipation. History of Any Multi-Drug Resistant Organisms: None Reported Past Surgical History: Joint Replacement, Tonsillectomy Additional Past Surgical History / Comment(s): Ephraim knee replacements Past Anesthesia/Blood Transfusion Reactions: No Reported Reaction Additional Past Anesthesia/Blood Transfusion Reaction / Comment(s): Pt received blood as an infant but cannot recall reason. Past Psychological History: No Psychological Hx Reported Smoking Status: Never smoker Past Alcohol Use History: None Reported Past Drug Use History: None Reported - Past Family History Mother Family Medical History: No Reported History Father Family Medical History: Cancer Additional Family Medical History / Comment(s): lung cancer Medications and Allergies Home Medications Medication Instructions Recorded Confirmed Type Aspirin EC [Ecotrin Low Dose] 81 mg PO DAILY 02/08/18 01/26/23 History Simvastatin [Zocor] 20 mg PO HS 02/08/18 01/26/23 History Tamsulosin [Flomax] 0.4 mg PO BID 02/08/18 01/26/23 History Docusate [Colace] 100 mg PO BID PRN 09/07/21 01/26/23 History Metoprolol Succinate [Toprol XL] 25 mg PO DAILY 09/07/21 01/26/23 History Acetaminophen [Tylenol 8 Hour] 650 mg PO Q4-6H PRN 01/26/23 01/26/23 History Ergocalciferol (Vitamin D2) 1,250 mcg PO Q7D 01/26/23 01/26/23 History [Drisdol (50,000 Iu)] Finasteride [Proscar] 5 mg PO DAILY 01/26/23 01/26/23 History Losartan Potassium 100 mg PO DAILY 01/26/23 01/26/23 History Melatonin 5 mg PO HS PRN 01/26/23 01/26/23 History Multivitamins, Thera [Multivitamin 1 tab PO DAILY 01/26/23 01/26/23 History (formulary)] Allergies Allergy/AdvReac Type Severity Reaction Status Date / Time cyclobenzaprine AdvReac Unknown Verified 01/26/23 15:30 [From Flexeril] Physical Exam Vitals: Vital Signs Temp Pulse Resp BP Pulse Ox 01/26/23 14:53 105 H 18 137/110 97 01/26/23 11:32 97.8 F 100 18 131/89 97 Intake and Output 01/26/23 01/26/23 01/26/23 06:59 14:59 22:59 Other: Weight 99.337 kg Results CBC & Chem 7: 01/26/23 15:16 01/26/23 12:10 Labs: Abnormal Lab Results - Last 24 Hours (Table) 01/26/23 01/26/23 Range/Units 12:10 12:10 RBC 4.01 L (4.30-5.90) m/uL Hgb 12.6 L (13.0-17.5) gm/dL Plt Count 128 L (150-450) k/uL Lymphocytes # 0.9 L (1.0-4.8) k/uL Chloride 108 H (98-107) mmol/L BUN 27 H (9-20) mg/dL Creatinine 1.46 H (0.66-1.25) mg/dL Glucose 123 H (74-99) mg/dL Assessment and Plan Assessment: Assessment and plan * Acute and chronic congestive heart failure systolic dysfunction with exacerbation * New onset atrial fibrillation with controlled ventricular response * hypertension * Acute kidney injury * Obesity * BPH * In regards to congestive heart failure exacerbation continue patient on Lasix, monitor intake and output and weight * Cardiology consulted, serial troponins ordered. Patient started on IV heparin. Continue metoprolol * In regards to BPH continue Flomax * In regards to acute kidney injury continue to hold losartan. Monitor renal profile was on Lasix * CODE STATUS full code
[2023-01-26] MEDS: TAMSULOSIN 0.4 MG CAP.ER.24H PO SCH (18:16)
[2023-01-26] MEDS ORDERED: METOPROLOL TARTRATE 25 MG TAB PO SCH (21:00)
[2023-01-26] MEDS ORDERED: MELATONIN 5 MG TABLET PO PRN (22:42)
[2023-01-27] MEDS: FUROSEMIDE 10 MG/ML 4 ML VIAL IV SCH (05:56)
[2023-01-27 06:44] LABS: INR 1.2 (<1.2); Partial Thromboplastin Time 61.5 sec (22.0-30.0); Prothrombin Time 12.4 sec (9.0-12.0)
--- NOTE | 2023-01-27 08:45 | P.CRDCN ---
History of Present Illness History of present illness: This is Dr. Nogueira dictating a consult on this patient The patient was interviewed and examined IMPRESSION / ASSESSMENT: Known severe cardiomyopathy Known left bundle branch block Previously in sinus rhythm Presented with acute and chronic congestive heart failure, mild for the last few weeks New onset atrial fibrillation with mild RVR PLAN: Increase Toprol-XL to 50 mg daily. Stop metoprolol tartrate Transition from heparin to ELIQUIS 5 mg twice daily Stop baby aspirin Stop IV Lasix and switched to 40 mg twice daily of by mouth Lasix TSH free T4 Limited 2-D echo tomorrow once her rates are better controlled HPI for the last few weeks patient has been complaining of increasing shortness of breath with exertion He came to the emergency room was found to be in atrial fibrillation, of new onset with a mildly increased heart rate did he was already on beta blockers, Toprol-XL 25 mg by mouth daily Mildly elevated NT proBNP consistent with a symptom of acute and chronic court estive heart failure exacerbated by new onset of atrial fibrillation It appears that the patient was prescribed Lasix in the past but he does not take it because he has to frequently go to the bathroom ROS: No fever chills or rigors, no cough, phlegm or expectoration, no nausea, vomiting or diarrhea, no hematuria, dysuria, no musculoskeletal complaints, no strokes or seizures, no skin lesions. EXAMINATION: No orthopnea Lying comfortably in bed No respiratory distress Mild bilateral lower extremity edema Breath sounds are equal bilaterally mildly reduced at the bases Heart sounds are irregular no obvious murmurs REVIEW OF LABS, ECG & MEDICAL DATA hemoglobin 12.5, normal white count 117,000 Sodium 140, potassium 4.6, both normal BUN 27 and creatinine 1.46 Normal troponins BNP 8000 Past Medical History Past Medical History: Atrial Fibrillation, Heart Failure, GERD/Reflux, Hyperlipidemia, Hypertension, Prostate Disorder Additional Past Medical History / Comment(s): BPH, occasional low back pain, o ccasional constipation. History of Any Multi-Drug Resistant Organisms: None Reported Past Surgical History: Joint Replacement, Tonsillectomy Additional Past Surgical History / Comment(s): [facility]raim knee replacements Past Anesthesia/Blood Transfusion Reactions: No Reported Reaction Additional Past Anesthesia/Blood Transfusion Reaction / Comment(s): Pt received blood as an but cannot recall reason. Past Psychological History: No Psychological Hx Reported Additional Psychological History / Comment(s): Pt resides with his spouse of 64 yrs. He uses a cane or walker occasionally. He is indpendent. Smoking Status: Never smoker Past Alcohol Use History: None Reported Past Drug Use History: None Reported - Past Family History Mother Family Medical History: No Reported History Father Family Medical History: Cancer Additional Family Medical History / Comment(s): lung cancer Medications and Allergies Home Medications Medication Instructions Recorded Confirmed Type Aspirin EC [Ecotrin Low Dose] 81 mg PO DAILY 02/08/18 01/26/23 History Simvastatin [Zocor] 20 mg PO HS 02/08/18 01/26/23 History Tamsulosin [Flomax] 0.4 mg PO BID 02/08/18 01/26/23 History Docusate [Colace] 100 mg PO BID PRN 09/07/21 01/26/23 History Metoprolol Succinate [Toprol XL] 25 mg PO DAILY 09/07/21 01/26/23 History Acetaminophen [Tylenol 8 Hour] 650 mg PO Q4-6H PRN 01/26/23 01/26/23 History Ergocalciferol (Vitamin D2) 1,250 mcg PO Q7D 01/26/23 01/26/23 History [Drisdol (50,000 Iu)] Finasteride [Proscar] 5 mg PO DAILY 01/26/23 01/26/23 History Losartan Potassium 100 mg PO DAILY 01/26/23 01/26/23 History Melatonin 5 mg PO HS PRN 01/26/23 01/26/23 History Multivitamins, Thera [Multivitamin 1 tab PO DAILY 01/26/23 01/26/23 History (formulary)] Allergies Allergy/AdvReac Type Severity Reaction Status Date / Time cyclobenzaprine AdvReac Unknown Verified 01/26/23 15:30 [From Flexeril] Physical Exam Vitals: Vital Signs Temp Pulse Pulse Resp BP BP Pulse Ox 01/27/23 07:00 97.8 F 106 H 18 132/83 97 01/27/23 02:18 97.9 F 95 18 144/92 98 01/26/23 20:02 97.5 F L 94 19 127/86 98 01/26/23 19:41 97.1 F L 98 18 150/118 96 01/26/23 18:40 88 18 137/104 98 01/26/23 14:53 105 H 18 137/110 97 01/26/23 11:32 97.8 F 100 18 131/89 97 Intake and Output 01/26/23 01/27/23 01/27/23 22:59 06:59 14:59 Intake Total 54 93.833 Balance 54 93.833 Intake: Intake, IV Titration 54 93.833 Amount Heparin Sod,Pork in 0.45% 54 93.833 NaCl 25,000 unit In 0.45 % NaCl 1 250ml.bag @ 10. 067 UNITS/KG/HR 10 mls/hr IV .Q24H [facility] Rx#: [id number] Other: Voiding Method Urinal # Voids 2 6 Weight 99.337 kg Results 01/26/23 15:16 01/26/23 12:10 Cardiac Enzymes 01/26/23 01/26/23 01/26/23 Range/Units 12:10 15:16 20:50 AST 31 (17-59) U/L Troponin I <0.012 <0.012 (0.000-0.034) ng/mL Coagulation 01/26/23 01/26/23 01/27/23 Range/Units 15:16 20:50 06:02 PT 11.8 12.4 H (9.0-12.0) sec APTT 23.9 61.1 H 61.5 H (22.0-30.0) sec CBC 01/26/23 01/26/23 Range/Units 12:10 15:16 WBC 6.9 6.2 (3.8-10.6) k/uL RBC 4.01 L 3.93 L (4.30-5.90) m/uL Hgb 12.6 L 12.5 L (13.0-17.5) gm/dL Hct 39.3 38.4 L (39.0-53.0) % Plt Count 128 L 117 L (150-450) k/uL Comprehensive Metabolic Panel 01/26/23 Range/Units 12:10 Sodium 140 (137-145) mmol/L Potassium 4.6 (3.5-5.1) mmol/L Chloride 108 H (98-107) mmol/L Carbon Dioxide 22 (22-30) mmol/L BUN 27 H (9-20) mg/dL Creatinine 1.46 H (0.66-1.25) mg/dL Glucose 123 H (74-99) mg/dL Calcium 9.2 (8.4-10.2) mg/dL AST 31 (17-59) U/L ALT 30 (4-49) U/L Alkaline Phosphatase 74 (38-126) U/L Total Protein 7.0 (6.3-8.2) g/dL Albumin 4.1 (3.5-5.0) g/dL Current Medications Generic Name Dose Route Start Last Admin Trade Name Freq PRN Reason Stop Dose Admin Apixaban 5 mg 01/27/23 09:00 Apixaban 5 Mg Tab PO BID [facility] Protocol Aspirin 81 mg 01/27/23 09:00 Aspirin 81 Mg PO DAILY [facility] Furosemide 40 mg 01/27/23 09:00 Furosemide 40 Mg Tab PO BID@0900,1600 [facility] Heparin Sodium (Porcine) 0 unit 01/26/23 14:08 Heparin Sodium 1,000 Un/Ml (10ml Vl) IV 01/27/23 10:00 PER PROTOCOL PRN Low PTT Protocol Heparin Sodium/Sodium Chloride 250 mls @ 10 mls/hr 01/26/23 14:15 01/27/23 06:52 25,000 unit/ Sodium Chloride IV 01/27/23 10:00 10.07 units/kg/hr .Q24H [facility] 10 mls/hr Titration Protocol 10.067 UNITS/KG/HR Melatonin 5 mg 01/26/23 22:42 Melatonin 5 Mg Tablet PO HS PRN Insomnia Metoprolol Succinate 50 mg 01/27/23 09:00 Metoprolol Succinate (Er) 50 Mg Tab.Er.24h PO DAILY [facility] Nitroglycerin 0.4 mg 01/26/23 14:54 Nitroglycerin Sl Tabs 0.4 Mg Tab SUBLINGUAL Q5M PRN Chest Pain Tamsulosin HCl 0.4 mg 01/26/23 18:30 01/26/23 18:16 Tamsulosin 0.4 Mg Cap.Er.24h PO 0.4 mg PC-SUPPER [facility] Administration Intake and Output 01/26/23 01/27/23 01/27/23 22:59 06:59 14:59 Intake Total 54 93.833 Balance 54 93.833 Intake: Intake, IV Titration 54 93.833 Amount Heparin Sod,Pork in 0.45% 54 93.833 NaCl 25,000 unit In 0.45 % NaCl 1 250ml.bag @ 10. 067 UNITS/KG/HR 10 mls/hr IV .Q24H [facility] Rx#: [id number] Other: Voiding Method Urinal # Voids 2 6 Weight 99.337 kg 01/26/23 15:16 01/26/23 12:10
[2023-01-27] MEDS ORDERED: ASPIRIN 81 MG PO SCH (09:00)
[2023-01-27] MEDS: FUROSEMIDE 40 MG TAB PO SCH ×2 (09:38→17:32)
[2023-01-27] MEDS: METOPROLOL SUCCINATE (ER) 50 MG TAB.ER.24H PO SCH (09:38)
[2023-01-27] MEDS: APIXABAN 5 MG TAB PO SCH ×2 (09:38→20:17)
[2023-01-27 14:37] LABS: Basophils # (A) 0.03 X 10*3/uL (0.00-0.10); Basophils % (A) 0.5 %; Eosinophils # (A) 0.08 X 10*3/uL (0.04-0.35); Eosinophils % (A) 1.3 %; HCT 35.8 % (39.6-50.0); HGB 11.3 d/dL (13.0-17.0); Lymphocytes % (A) 20.8 %; MCH 30.9 pg (27.0-32.0); MCHC 31.6 d/dL (32.0-37.0); MCV 97.8 FL (80.0-97.0); Mean Platelet Volume 13.9 FL (9.5-12.2); Monocytes # (A) 0.63 X 10*3/uL (0.20-1.00); Monocytes % (A) 10.1 %; NRBC Per 100 WBC 0 X 10*3/uL (0.00-0.01); Neutrophils # (A) 4.18 X 10*3/uL (1.80-7.70); Platelet Count 118 X 10*3/uL (140-440); RBC 3.66 X 10*6/uL (4.40-5.60); RDW 13.6 % (11.5-14.5); WBC 6.24 X 10*3/uL (4.50-10.00)
--- NOTE | 2023-01-27 15:02 | P.PN ---
Subjective * 85-year-old gentleman with past medical history significant for congestive heart failure ejection fraction of 30%, hypertension, hyperlipidemia, BPH previously seen by cardiology in September 2021, history of chronic kidney disease stage III presented to the emergency department with complaints of shortness of breath, worsening lower extremity edema. At the time of presentation in ER patient was noted to have episode of A. fib with controlled heart rate * Workup initiated in ER included basic metabolic panel which showed Normal 1.46, troponin is ordered pending, liver profile within normal limits, CBC shows hemoglobin of 12.6 platelet of 128 WBC 6.9 * Patient was seen in ER waiting area, out from ED provider EKG obtained at the time of presentation did show A. fib. And repeat EKG ordered * Patient to be admitted to medical floor with consultations from cardiology September 26, 2022 Patient presents with dyspnea, currently improving, he denies chest pain as 0/10. No dizziness no other new complaints. Patient presents because of dyspnea of 2 weeks duration, he called his PCP Dr. Juan David alfaro to the hospital. Patient denies to me any chest pain during this mission or prior to hospitalization. Patient evaluated by roustabout, he was started on liquids and metoprolol for A. fib and RVR. Follow-up echocardiogram Possible discharge in 24-48 hours Objective - Vital Signs Vital signs: Vital Signs Temp 97.8 F 01/27/23 07:00 Pulse 106 H 01/27/23 07:00 Resp 18 01/27/23 07:00 BP 132/83 01/27/23 07:00 Pulse Ox 97 01/27/23 07:00 FiO2 Intake & Output 01/26/23 01/27/23 01/27/23 18:59 06:59 18:59 Intake Total 147.833 122 Balance 147.833 122 Weight 99.337 kg 99.337 kg Intake: Intake, IV Titration 147.833 Amount Heparin Sod,Pork in 0.45% 147.833 NaCl 25,000 unit In 0.45 % NaCl 1 250ml.bag @ 10. 067 UNITS/KG/HR 10 mls/hr IV .Q24H [facility] Rx#: [id number] Oral 122 Other: Voiding Method Urinal # Voids 6 - Exam GENERAL: The patient is alert and oriented x3, not in any acute distress. Well developed, well nourished. HEENT: Pupils are round and equally reacting to light. EOMI. No scleral icterus. No conjunctival pallor. Normocephalic, atraumatic. No pharyngeal erythema. No thyromegaly. CARDIOVASCULAR: S1 and S2 present. No murmurs, rubs, or gallops. PULMONARY: Chest is clear to auscultation, no wheezing , no crackles. ABDOMEN: Soft, nontender, nondistended, normoactive bowel sounds. No palpable organomegaly. MUSCULOSKELETAL: No joint swelling or deformity. EXTREMITIES: No cyanosis, clubbing, or pedal edema. NEUROLOGICAL: Gross neurological examination did not reveal any focal deficits. SKIN: No rashes. no petechiae. - Labs CBC & Chem 7: 01/27/23 06:02 01/26/23 12:10 Labs: Abnormal Lab Results - Last 24 Hours (Table) 01/26/23 01/26/23 01/27/23 Range/Units 15:16 20:50 06:02 RBC 3.93 L 3.66 L (4.30-5.90) m/uL Hgb 12.5 L 11.3 L (13.0-17.5) gm/dL Hct 38.4 L 35.8 L (39.0-53.0) % MCV 97.8 H (80.0-97.0) FL MCHC 31.6 L (32.0-37.0) d/dL Plt Count 117 L 118 L (150-450) k/uL MPV 13.9 H (9.5-12.2) FL Lymphocytes # 0.9 L (1.0-4.8) k/uL PT (9.0-12.0) sec INR (<1.2) APTT 61.1 H (22.0-30.0) sec 01/27/23 Range/Units 06:02 RBC (4.30-5.90) m/uL Hgb (13.0-17.5) gm/dL Hct (39.0-53.0) % MCV (80.0-97.0) FL MCHC (32.0-37.0) d/dL Plt Count (150-450) k/uL MPV (9.5-12.2) FL Lymphocytes # (1.0-4.8) k/uL PT 12.4 H (9.0-12.0) sec INR 1.2 H (<1.2) APTT 61.5 H (22.0-30.0) sec Assessment and Plan Assessment: * Acute and chronic congestive heart failure systolic dysfunction with exacerba tion * New onset atrial fibrillation with controlled ventricular response * hypertension * Acute kidney injury * Obesity * BPH Plan: Continue with the eliquis Continue with metoprolol Cardiology consult Labs and medication were reviewed.. Continue same treatment. Continue with symptomatic treatment. Resume home medication. Monitor labs and vitals. DVT and GI prophylaxis. Further recommendations as per clinical course of the patient DVT prophylaxis: eliquis GI Prophylaxis: Pepcid PT/OT: Pending Prognosis is guarded
[2023-01-27 15:06] VITALS: BMI 34.2
[2023-01-27] MEDS: TAMSULOSIN 0.4 MG CAP.ER.24H PO SCH (17:32)
[2023-01-28 00:58] LABS: BUN/Creat Ratio 15.18 Ratio (12.00-20.00); Blood Urea Nitrogen 25.8 mg/dL (9.0-27.0); Calcium 9.3 mg/dL (8.7-10.3); Chloride 107 mmol/L (96-109); Chol/HDL Ratio 1.86 Ratio; Glucose 119 mg/dL (70-110); LDL Cholesterol,Calculated 24.2 mg/dL (0.0-131.0); Potassium 3.9 mmol/L (3.5-5.5); Sodium 142 mmol/L (135-145); VLDL Calculation 13.34 mg/dL (5.00-40.00)
[2023-01-28] MEDS ORDERED: FAMOTIDINE 20 MG/2 ML VIAL IV SCH (09:00)
[2023-01-28] MEDS ORDERED: APIXABAN 2.5 MG TABLET PO SCH (09:00)
[2023-01-28 09:11] VITALS: BP 148/93; PULSE 92; RESP 16; TEMP 97.6
--- NOTE | 2023-01-28 09:17 | P.PN ---
Subjective Patient is doing well Easily short of breath now His heart rates are in the 90s Blood pressure 122/74 mmHg and 148/93 mmHg He is ambulating around in the room No shortness of breath no chest discomfort Impression Atrial fibrillation with RVR Congestive heart failure Known cardiomyopathy Plan Increase Toprol-XL to 75 mg daily Continue Lasix 40 by mouth twice a day Continue ELIQUIS Follow-up with Dr. Fisher in a week Stable for discharge from a cardiac vascular standpoint Objective - Vital Signs Vital signs: Vital Signs Temp 97.6 F 01/28/23 07:00 Pulse 92 01/28/23 07:00 Resp 16 01/28/23 07:00 BP 148/93 01/28/23 07:00 Pulse Ox 97 01/28/23 07:00 FiO2 Intake & Output 01/27/23 01/28/23 01/28/23 18:59 06:59 18:59 Intake Total 122 358 Balance 122 358 Weight 99.337 kg Intake: Oral 122 358 Other: Voiding Method Toilet Urinal # Voids 1 1 - Labs CBC & Chem 7: 01/27/23 06:02 01/27/23 06:02 Labs: Abnormal Lab Results - Last 24 Hours (Table) 01/27/23 01/27/23 Range/Units 06:02 06:02 RBC 3.66 L (4.40-5.60) X 10*6/uL Hgb 11.3 L (13.0-17.0) d/dL Hct 35.8 L (39.6-50.0) % MCV 97.8 H (80.0-97.0) FL MCHC 31.6 L (32.0-37.0) d/dL Plt Count 118 L (140-440) X 10*3/uL MPV 13.9 H (9.5-12.2) FL Anion Gap 13.00 H (4.00-12.00) mmol/L Creatinine 1.7 H (0.6-1.5) mg/dL Est GFR (CKD-EPI) 39 L (>=60) Glucose 119 H (70-110) mg/dL
[2023-01-28] MEDS: FUROSEMIDE 40 MG TAB PO SCH (09:26)
[2023-01-28] MEDS: METOPROLOL SUCCINATE (ER) 50 MG TAB.ER.24H PO SCH (09:27)
[2023-01-28] MEDS: METOPROLOL SUCCINATE (ER) 25 MG TAB.ER.24H PO STA ×2 (09:30→11:29)
--- NOTE | 2023-01-28 12:40 | CA ---
Transthoracic Echo Report Name: Jed Redman Age: 87 Gender: M : 1935 Exam Date: 01/28/2023 09:33 Exam Location: [facility] Ht (in): 67 Wt (lb): 219 Ordering Physician: Dani Nogueira MD ([id number]) Attending/Referring Phys: [employer] Electrical Designer Ivis Sanchez RDCS Procedure CPT: Indications: New onset afib Cardiac Hx: Technical Quality: Fair Contrast 1: Total Dose (mL): Contrast 2: Total Dose (mL): MEASUREMENTS (Male / Female) Normal Values 2D ECHO LV Diastolic Diameter PLAX 5.3 cm 4.2 - 5.9 / 3.9 - 5.3 cm LV Systolic Diameter PLAX 4.4 cm IVS Diastolic Thickness 1.3 cm 0.6 - 1.0 / 0.6 - 0.9 cm LVPW Diastolic Thickness 1.3 cm 0.6 - 1.0 / 0.6 - 0.9 cm LV Relative Wall Thickness 0.5 DOPPLER TR Peak Velocity 347.3 cm/s TR Peak Gradient 48.3 mmHg Right Ventricular Systolic Press 53.3 mmHg FINDINGS Left Ventricle Limited study. Mildly increased left ventricular wall thickness. Reduced global left ventricular systolic function. Left ventricular ejection fraction is estimated at 30-35 %. Right Ventricle Moderate to severe pulmonary hypertension. Right ventricular systolic pressure estimated at 53 mm hg. Right Atrium Left Atrium Mitral Valve [id number] mitral regurgitation. Aortic Valve Mild aortic regurgitation. Tricuspid Valve [id number] tricuspid regurgitation. Pulmonic Valve Pericardium No pericardial effusion. Aorta CONCLUSIONS severe lv dysfunction severe MR Previewed by: Dr. Dani Nogueira MD (Electronically Signed) Final Date: 28 January 2023 12:38
--- NOTE | 2023-01-28 21:56 | P.DS ---
Providers Date of admission: 01/26/23 13:48 Attending physician: Hema Anguiano MD Consults: 01/26/23 14:04 Consult Physician Stat Consulting Provider: [facility] Consult Reason/Comments: CHF exacerbation. New onset a-fib Do you want consulting provider notified?: Yes Primary care physician: [facility] Course: Diagnoses: Acute and chronic congestive heart failure systolic dysfunction . Ejection fraction 30% New onset atrial fibrillation with controlled ventricular response hypertension Acute kidney injury Obesity BPH Hospital course: 85-year-old gentleman with past medical history significant for congestive heart failure ejection fraction of 30%, hypertension, hyperlipidemia, BPH previously seen by cardiology in September 2021, history of chronic kidney disease stage III presented to the emergency department with complaints of shortness of breath, worsening lower extremity edema. At the time of presentation in ER patient was noted to have episode of A. fib with controlled heart rate. Patient involved by gymnastic teacher and she was started on liquids and metoprolol 25 mg with heart rate controlled. So she was diuresed using intravenous Lasix. Patient showed in terval improvement. Her dyspnea improved. She denies chest pain. She denies any other new complaint. Patient was cleared for discharge by gymnastic teacher. Problems and management plan were discussed with the patient and he verbalized understanding and acceptance Patient was found stable and can be discharged home in guarded prognosis however he needs follow-up as an outpatient. Patient was instructed to follow up with PCP Dr. seals within one week and patient agrees Patient was instructed to follow up with Dr. Rouse and he agrees with the appointments made for him and follow-up. Also he will follow-up about his Eliquis co-pay of $ 38, and he is going to discuss it with his PCP Dr. Seals and gymnastic teacher Dr. Fisher as instructed. In the meantime a coupon of 1-month free Eliquis is provided for him upon discharge. Patient informed and he is agreeable with the plan Physical exam Gen: patient is a AAOx3, no distress CVS: S1-S2, RRR, no murmur Lungs: B/L CTA, no wheezing Abdomen: soft, no distention, no tenderness, positive bowel sounds Extremity: no leg edema or induration Time spent more than 35 minutes Patient Condition at Discharge: Good Plan - Discharge Summary New Discharge Prescriptions: New Nitroglycerin Sl Tabs [Nitrostat] 0.4 mg SUBLINGUAL Q5M PRN tab PRN Reason: Chest Pain Apixaban [Eliquis] 2.5 mg PO BID tab Tamsulosin [Flomax] 0.4 mg PO PC-SUPPER cap Furosemide [Lasix] 40 mg PO BID@0900,1600 #60 tab Metoprolol Succinate (ER) [Toprol XL] 75 mg PO DAILY #180 tab Famotidine [Pepcid] 20 mg PO DAILY #30 tablet Continue Tamsulosin [Flomax] 0.4 mg PO BID Simvastatin [Zocor] 20 mg PO HS Docusate [Colace] 100 mg PO BID PRN PRN Reason: Constipation Melatonin 5 mg PO HS PRN PRN Reason: Insomnia Acetaminophen [Tylenol 8 Hour] 650 mg PO Q4-6H PRN PRN Reason: Pain Ergocalciferol (Vitamin D2) [Drisdol (50,000 Iu)] 1,250 mcg PO Q7D Finasteride [Proscar] 5 mg PO DAILY Multivitamins, Thera [Multivitamin (formulary)] 1 tab PO DAILY Discontinued Aspirin EC [Ecotrin Low Dose] 81 mg PO DAILY Losartan Potassium 100 mg PO DAILY Metoprolol Succinate [Toprol XL] 25 mg PO DAILY Discharge Medication List Simvastatin [Zocor] 20 mg PO HS 02/08/18 [History] Tamsulosin [Flomax] 0.4 mg PO BID 02/08/18 [History] Docusate [Colace] 100 mg PO BID PRN 09/07/21 [History] Acetaminophen [Tylenol 8 Hour] 650 mg PO Q4-6H PRN 01/26/23 [History] Ergocalciferol (Vitamin D2) [Drisdol (50,000 Iu)] 1,250 mcg PO Q7D 01/26/23 [History] Finasteride [Proscar] 5 mg PO DAILY 01/26/23 [History] Melatonin 5 mg PO HS PRN 01/26/23 [History] Multivitamins, Thera [Multivitamin (formulary)] 1 tab PO DAILY 01/26/23 [History] Apixaban [Eliquis] 2.5 mg PO BID tab 01/28/23 [Rx] Famotidine [Pepcid] 20 mg PO DAILY #30 tablet 01/28/23 [Rx] Furosemide [Lasix] 40 mg PO BID@0900,1600 #60 tab 01/28/23 [Rx] Metoprolol Succinate (ER) [Toprol XL] 75 mg PO DAILY #180 tab 01/28/23 [Rx] Nitroglycerin Sl Tabs [Nitrostat] 0.4 mg SUBLINGUAL Q5M PRN tab 01/28/23 [Rx] Tamsulosin [Flomax] 0.4 mg PO PC-SUPPER cap 01/28/23 [Rx] Follow up Appointment(s)/Referral(s): Adarsh Rouse MD [STAFF PHYSICIAN] - 02/09/23 4:00 pm Juan Fall MD [Primary Care Provider] - 1-2 days Patient Instructions/Handouts: A-fib (Atrial Fibrillation) (DC) Activity/Diet/Wound Care/Special Instructions: Heart healthy diet activity is restricted till you see your doctor copay for parrish is 38 $ Discharge Disposition: HOME SELF-CARE
[2023-01-29] MEDS ORDERED: METOPROLOL SUCCINATE (ER) 25 MG TAB.ER.24H PO SCH (09:00)
== END 2023-01-28 13:22 | disposition home or self-care (01) ==
LOC: EC 11:07 → 6NMEDSUR 13:48
PROVIDERS: ADMIT Internal Medicine; ATTEND Internal Medicine
DX: I13.0 Hypertensive heart and chronic kidney disease with heart failure and stage 1 through stage 4 chronic kidney disease, or unspecified chronic kidney disease (principal); I50.22 Chronic systolic (congestive) heart failure; N18.30 Chronic kidney disease, stage 3 unspecified; N17.9 Acute kidney failure, unspecified; I48.91 Unspecified atrial fibrillation; K21.9 Gastro-esophageal reflux disease without esophagitis; E78.5 Hyperlipidemia, unspecified; N40.0 Benign prostatic hyperplasia without lower urinary tract symptoms; I42.9 Cardiomyopathy, unspecified; I44.7 Left bundle-branch block, unspecified; E66.9 Obesity, unspecified; Z79.82 Long term (current) use of aspirin; Z79.899 Other long term (current) drug therapy
CPT/HCPCS: 96376 ×2; 96366 ×3; 96375 ×2; 96365; 99285; 36415; 93005; 93308; 97162; 83880; 80061; 80053; 80048; 84443; 84484; 85025 ×2; 85610 ×2; 85730 ×3; 71046; G0378 ×3; J1940 ×2; J3490; J1644 ×2